=== PATIENT | female | born 1955 | race American Indian/Alaskan Native ===

== ENCOUNTER 2019-01-13 09:14 | Observation (INO) | payer MEDICAID, OTHER ==
[2018-12-22 10:06] LABS: Basophils % (Auto) 0.4 % (0.0-1.8); Eosinophils % (Auto) 0.4 % (0.0-4.3); Hematocrit 43.3 % (30.3-42.9); Hemoglobin 14.3 gm/dl (10.1-14.3); Lymphocytes # (Auto) 1.9 K/mm3 (1.2-5.4); Lymphocytes % (Auto) 20.7 % (13.4-35.0); Mean Corpuscular HGB Conc 33 % (30-34); Mean Corpuscular Volume 82 fl (79-97); Monocytes # (Auto) 0.8 K/mm3 (0.0-0.8); Monocytes % (Auto) 8.6 % (0.0-7.3); Platelet Count 178 K/mm3 (140-440); Red Blood Count 5.26 M/mm3 (3.65-5.03); Red Cell Distribution Width 15.7 % (13.2-15.2)
[2018-12-22 10:18] LABS: BUN/Creatinine Ratio 27; Blood Urea Nitrogen 30 mg/dL (7-17); Hemolysis Index 11
[~2019-01-13 09:14] MED LIST: ANCEF/STERILE WATER 2 GM/20 ML 2 GM/20 ML SYRINGE IV NR; ANCEF/STERILE WATER 2 GM/20 ML IV NR
[2019-01-13] MEDS ORDERED: SUBLIMAZE IV NR (09:38)
[2019-01-13] MEDS ORDERED: ZOFRAN IV PRN ×2 (09:38→19:37)
[2019-01-13] MEDS ORDERED: SUBLIMAZE IV PRN (09:38)
--- NOTE | 2019-01-13 09:38 | Anesthesia Day of Surgery ---
Anesthesia Day of Surgery - Day of Surgery Patient Examined: Yes Patient H&P Reviewed: Yes Patient is NPO: Yes Beta Blockers: Yes
[2019-01-13] MEDS ORDERED: TYLENOL PO NR (09:39)
--- NOTE | 2019-01-13 09:44 | Anesthesia Consultation ---
Anesthesia Consult and Med Hx Date of service: 01/13/19 - Airway Anesthetic Teeth Evaluation: Dentures, Edentulous ROM Head & Neck: Adequate Mental/Hyoid Distance: Adequate Mallampati Class: Class II Intubation Access Assessment: Good - Pre-Operative Health Status ASA Pre-Surgery Classification: ASA2 Proposed Anesthetic Plan: General Nerve Block: PEC - Cardiovascular System Hx Hypertension: Yes (x 20yrs. ETT 3 weeks ago ok per pt) - Central Nervous System Hx Psychiatric Problems: No - Other Systems Hx Cancer: Yes - Additional Comments Anesthesia Medical History Comments: +Med Clearance
[2019-01-13] MEDS ORDERED: VERSED IV NR (10:00)
[2019-01-13] MEDS ORDERED: NEURONTIN PO NR (10:00)
[2019-01-13] MEDS: LACTATED RINGERS 1,000 ML IV SCH (10:20)
[2019-01-13] MEDS ORDERED: XYLOCAINE 1% 20 mL ONE (10:42)
[2019-01-13] MEDS ORDERED: MARCAINE-EPI 0.5%-1:200,000 INFILTRATI ONE (10:42)
[2019-01-13] MEDS ORDERED: NACL P/F VIAL (10 ML) 20 ML ONE (10:47)
[2019-01-13] MEDS ORDERED: BACITRACIN ONE (10:48)
[2019-01-13] MEDS ORDERED: GENTAMICIN ONE (10:48)
[2019-01-13] MEDS ORDERED: ANCEF ONE ×2 (10:48→18:04)
[2019-01-13] MEDS ORDERED: XYLOCAINE 1%/ EPI 1:100,000 INFILTRATI ONE (10:49)
[2019-01-13] MEDS ORDERED: DIPRIVAN 10 MG/ML IV ONE (10:58)
[2019-01-13] MEDS ORDERED: ZEMURON IV ONE (11:00)
[2019-01-13] MEDS ORDERED: SUBLIMAZE ONE ×2 (11:00→15:43)
[2019-01-13] MEDS ORDERED: ZOFRAN ONE ×2 (11:04→21:48)
[2019-01-13] MEDS ORDERED: XYLOCAINE MPF 2% ONE (11:04)
[2019-01-13] MEDS ORDERED: DECADRON ONE (11:04)
[2019-01-13] MEDS ORDERED: NACL P/F VIAL (10 ML) 10 ML ONE (11:19)
[2019-01-13] MEDS ORDERED: METHYLENE BLUE ONE (11:19)
[2019-01-13] MEDS ORDERED: NACL 0.9% 1000 ML 1,000 ML ONE (14:44)
[2019-01-13] MEDS ORDERED: DILAUDID ONE ×2 (14:49→18:10)
[2019-01-13] MEDS ORDERED: METHYLENE BLUE IV ONE (15:12)
[2019-01-13] MEDS ORDERED: WATER FOR IRRIG STERILE IR ONE (15:12)
[2019-01-13] MEDS ORDERED: NACL 0.9% 1000 ML IR ONE (15:18)
[2019-01-13] MEDS ORDERED: LACTATED RINGERS 1,000 ML ONE ×2 (16:52→22:20)
[2019-01-13] MEDS ORDERED: BACITRACIN IR ONE (18:00)
[2019-01-13] MEDS ORDERED: ANCEF IR ONE (18:00)
[2019-01-13] MEDS ORDERED: GENTAMICIN IV ONE (18:00)
--- NOTE | 2019-01-13 19:34 | Operative Report ---
Operative Report Operative Report: Operative Report: Date of Service: January 13, 2019 Preoperative diagnosis: Multifocal right breast cancer of the upper outer quadrant and multifocal left breast cancer of the upper inner quadrant and overlapping areas Postoperative diagnosis: Same Procedure: Right total mastectomy with sentinel lymph node biopsy followed by ALND and left total mastectomy with SLNB Surgeon: Joanie Olivares M.D. Senior Power Scheduler: Dorinda Jimenez M.D. Anesthesia: Gen. Findings: Right breast clips present within right total mastectomy and left breast clips present within left total mastectomy. 3 right sentinel lymph nodes identified and one SLN positive for malignancy on frozen section of pathology and proceeded with left axillary lymph node dissection. 2 sentinel lymph nodes negative for malignancy on frozen section. Complications: None Drains: One 15 Turkmen SHERITA drains of the right axilla and additional drains placed by plastic surgery Estimated blood loss: 50 cc Disposition: Plastic Surgery proceeded with bilateral tissue expanders Indications for operative procedure: This is a 63-year-old lady with bilateral breast cancer, stage I right breast cancer of the upper outer quadrant ER/Her-2 positive and triple negative left breast cancer Stage II of the upper inner quadrant. Recommendations were to proceed with a bilateral mastectomy given multicentric left breast cancer and multifocal right breast cancer. She wished to proceed with a bilateral mastectomy with SLN staging and placement of bilateral tissue expanders in conjunction with plastic surgery. She wished to proceed with the above procedure. Procedure in detail: Anesthesia placed bilateral pectoral muscle blocks. The patient was taken to the operating room and was placed supine. Gen. anesthesia was administered. Bilateral nipples were injected with radioisotope and 1 cc of methylene blue. Bilateral chest and axillas were prepped and draped in the normal sterile operative fashion. Timeout was performed. Typical mastectomy incision markings were made that included the areas of known cancer. Attention was taken towards the right breast. A gamma probe was inserted into the axilla to identify the sentinel lymph node location with uptake noted. A skin incision was made with a 10 blade knife and dissection taken down to the subcutaneous tissues. First began raising of the superior flap to the level of the clavicle superiorly and posteriorly to the pectoralis muscle. Followed by raising of the medial flap to the level of the sternum and posteriorly to the pectoralis muscle. Followed by raising of the lateral flap to the level of the latissimus dorsi muscle and taken down posteriorly. The gamma probe was inserted into the axilla, the axillary fascia was opened and at least 3 sentinel lymph nodes were identified with the gamma probe. SLNs were dissected free and sent to pathology. All remaining counts were less than 10% of the highest SLN. Lymph node was sent to pathology with findings positive for malignancy noted on frozen section of at least one of three SLNS. Then proceeded with raising of the inferior flap to the level of the inframammary fold taken posterior to the pectoralis muscle. The mastectomy/breast was removed from the pectoralis muscle without incident. The specimen was appropriately marked and sent to radiology with findings of breast clips present of the area of known cancer; specimen was then sent to pathology. Attention was then taken towards the right axilla. First began opening of the axillary fascia further. The lattismus dorsi muscle was identified and followed superiorly. Then proceeded with identification of the axillary vein followed by identification of the thoracodorsal bundle and long thoracic nerve. Axillary lymph nodes were then removed from the above boundaries with the aid of the bovie cautery in a sweeping-like motion and then sent to pathology. Axillary lymph nodes from level I and II were removed. Both nerves were identified and unharmed. Hemostasis was noted. The chest wall was irrigated and suctioned. Hemostasis was obtained. Attention was then taken toward the left breast. First began raising of the superior flap to the level of the clavicle superiorly and posteriorly to the pectoralis muscle. Followed by raising of the medial flap to the level of the sternum and posteriorly to the pectoralis muscle. Followed by raising of the lateral flap to the level of the latissimus dorsi muscle and taken down posteriorly. The gamma probe was inserted into the axilla, the axillary fascia was opened and 2 sentinel lymph nodes were identified with the gamma probe. SLNs were dissected free and sent to pathology. All remaining counts were less than 10% of the highest SLN. Lymph node were sent to pathology with findings negative for malignancy noted on frozen section and one SLN with clip present from prior benign biopsy. Then proceed with raising of the inferior flap to the level of the inframammary fold taken posterior to the pectoralis muscle. The mastectomy/breast was removed from the pectoralis muscle without incident. The s pecimen was appropriately marked and sent to radiology with clips present and then sent to pathology. Hemostasis was obtained. Plastic surgery then proceeded with placement of bilateral tissue expanders. She tolerated surgery very well.
[2019-01-13] MEDS ORDERED: SODIUM CHLORIDE FLUSH SYRINGE 10 ML IV PRN (19:37)
[2019-01-13] MEDS ORDERED: TYLENOL PO PRN (19:37)
[2019-01-13] MEDS ORDERED: REGLAN PO PRN (19:37)
[2019-01-13] MEDS ORDERED: BENADRYL PO PRN (19:37)
--- NOTE | 2019-01-13 19:37 | Short Stay Summary ---
Short Stay Documentation Date of service: 01/13/19 - History H&P: obtained from office - Allergies and Medications Current Medications: Allergies lisinopril Adverse Reaction (Verified 01/13/19 10:44) Unknown PT STATES SHE HAS A COUGH Home Medications Medication Instructions Recorded Confirmed Last Taken Type RX: Chlorthalidone 50 mg PO DAILY 12/17/18 12/17/18 01/12/19 History amLODIPine [Norvasc] 10 mg PO DAILY 12/17/18 12/17/18 01/13/19 02:00 History AtorvaSTATin [Lipitor] 10 mg PO DAILY 12/22/18 12/22/18 01/12/19 History Metoprolol [Lopressor] 25 mg PO DAILY 12/22/18 12/22/18 01/13/19 02:00 History Active Medications Cefazolin Sodium (Ancef/Sterile Water 2 Gm/20 Ml) 2 gm IV PREOP NR Stop: 01/13/19 23:00 Fentanyl (Sublimaze) 50 mcg IV Q5MIN PRN PRN Reason: Pain , Severe (7-10) Stop: 01/13/19 20:00 Lactated Ringer's (Lactated Ringers) 1,000 mls @ 125 mls/hr IV DIRECT CELESTINO Last Admin: 01/13/19 10:20 Dose: 125 mls/hr Documented by: Midazolam HCl (Versed) 2 mg IV PREOP NR Stop: 01/13/19 23:59 Last Admin: 01/13/19 12:37 Dose: 2 mg Documented by: - Brief post op/procedure progress note Date of procedure: 01/13/19 Pre-op diagnosis: Bilateral breast cancer Post-op diagnosis: same Procedure: Right MRM and left total mastectomy Anesthesia: GETA Findings: Bilateral breast clips present within radiograph specimen; proceeded with an right ALND given positive SLNB Surgeon: ALVAREZ CUNINNGHAM Distance Education Faculty Liaison: ALDA MILIAN Estimated blood loss: 50-100ml Pathology: list (right MRM; left mastectomy with SLNB) Specimen disposition: to lab Condition: stable - Disposition Condition at discharge: Good Disposition: DC/TX-02 SHRT-TRM GEN HOSP IP Short Stay Discharge Plan Activity: other (no heavy lifting) Diet: regular Wound: keep clean and dry Follow up with: MICHEL PEÑA MD [Primary Care Provider] - 7 Days ALVAREZ CUNNINGHAM MD [Staff Physician] - 7 Days
[2019-01-13] MEDS ORDERED: LACTATED RINGERS 1,000 ML IV SCH (20:00)
[2019-01-13] MEDS ORDERED: NORMODYNE IV PRN (21:30)
[2019-01-13] MEDS ORDERED: CALAN ONE (21:57)
[2019-01-13] MEDS ORDERED: CALAN IV ONE (23:15)
[2019-01-14] MEDS: MORPHINE IV PRN ×2 (00:03→05:43)
[2019-01-14] MEDS: COLACE PO SCH ×2 (00:03→10:42)
[2019-01-14] MEDS: LACTATED RINGERS 1,000 ML IV SCH (00:27)
[2019-01-14] MEDS: PERCOCET 5/325 PO PRN ×2 (03:23→10:42)
[2019-01-14] MEDS ORDERED: ceFAZolin 2 GM in NACL 0.9% 100 ML IV ONE (07:43)
--- NOTE | 2019-01-14 07:47 | Progress Note ---
Assessment and Plan This is a 63 year old lady with Stage II bilateral breast cancer, POD#1 R MRM and left total mastectomy with SLNB. 1. No acute events overnight. 2. Pain in good control. 3. Bilateral chest incisions with no hematoma and bandages intact; SHERITA drains to bulb suction. 4. OOB to hallway. 5. D/C planning for today, SHERITA drain education. Subjective Date of service: 01/14/19 Principal diagnosis: Bilateral breast cancer Interval history: POD#1-R MRM and left total mastectomy with SLNB Objective - Constitutional Vitals: Vital Signs - 12hr 01/13/19 01/13/19 01/13/19 20:22 20:25 20:30 Temperature 96.9 F L Pulse Rate 81 83 84 Respiratory 16 10 L 10 L Rate Blood Pressure 171/80 171/80 175/84 O2 Sat by Pulse 100 100 100 Oximetry 01/13/19 01/13/19 01/13/19 20:35 20:40 20:45 Temperature Pulse Rate 86 91 H 78 Respiratory 10 L 10 L 12 Rate Blood Pressure 190/87 171/100 203/90 O2 Sat by Pulse 100 100 100 Oximetry 01/13/19 01/13/19 01/13/19 21:00 21:15 21:30 Temperature Pulse Rate 80 87 85 Respiratory 10 L 17 12 Rate Blood Pressure 157/64 186/87 201/78 O2 Sat by Pulse 100 98 98 Oximetry 01/13/19 01/13/19 01/14/19 21:45 22:23 00:03 Temperature Pulse Rate 72 68 Respiratory 18 18 Rate Blood Pressure 189/81 168/73 O2 Sat by Pulse 94 Oximetry 01/14/19 01/14/19 01/14/19 03:23 05:43 06:01 Temperature 98.0 F Pulse Rate 83 Respiratory 18 18 20 Rate Blood Pressure 137/60 O2 Sat by Pulse 92 Oximetry General appearance: Present: no acute distress - EENT Eyes: PERRL, EOM intact ENT: hearing intact, clear oral mucosa Ears: bilateral: normal - Neck Neck: supple, normal ROM - Respiratory Respiratory effort: normal Respiratory: negative: CTA - Breasts Breasts: other (bilateral chest incision bandages c/d/i; no hematoma; SHERITA drains to bulb suction) - Cardiovascular Rhythm: regular Extremities: no ischemia, pulses intact, pulses symmetrical, No edema, normal temperature, normal color, Full ROM - Gastrointestinal General gastrointestinal: Present: soft, non-tender, non-distended - Genitourinary Female genitourinary: deferred - Integumentary Integumentary: clear, warm, dry - Musculoskeletal Musculoskeletal: strength equal bilaterally - Neurologic Neurologic: CNII-XII intact, moves all extremities - Psychiatric Psychiatric: appropriate mood/affect, intact judgment & insight, memory intact, cooperative - Labs CBC & Chem 7: 12/22/18 09:00 12/22/18 09:00 Medications & Allergies - Medications Allergies/Adverse Reactions: Allergies lisinopril Adverse Reaction (Verified 01/13/19 10:44) Unknown PT STATES SHE HAS A COUGH Home Medications: Home Medications Medication Instructions Recorded Confirmed Last Taken Type Chlorthalidone 50 mg PO DAILY 12/17/18 12/17/18 01/12/19 History amLODIPine [Norvasc] 10 mg PO DAILY 12/17/18 12/17/18 01/13/19 02:00 History AtorvaSTATin [Lipitor] 10 mg PO DAILY 12/22/18 12/22/18 01/12/19 History Metoprolol [Lopressor] 25 mg PO DAILY 12/22/18 12/22/18 01/13/19 02:00 History Active Medications: Generic Name Dose Route Start Last Admin Trade Name Freq PRN Reason Stop Dose Admin Acetaminophen 650 mg 01/13/19 19:37 Tylenol PO Q6H PRN Pain MILD(1-3)/Fever >100.5/LEON Diphenhydramine HCl 25 mg 01/13/19 19:37 Benadryl PO Q8H PRN Itching Docusate Sodium 100 mg 01/13/19 22:00 01/14/19 00:03 Colace PO 100 mg BID CELESTINO Administration Lactated Ringer's 1,000 mls @ 125 mls/hr 01/13/19 10:00 01/14/19 00:27 Lactated Ringers IV 125 mls/hr DIRECT CELESTINO Administration Lactated Ringer's 1,000 mls @ 125 mls/hr 01/13/19 20:00 Lactated Ringers IV DIRECT CELESTINO Labetalol HCl 10 mg 01/13/19 21:30 01/13/19 20:45 Normodyne IV 10 mg Q10MIN PRN Administration sys. greater than 170 Metoclopramide HCl 10 mg 01/13/19 19:37 Reglan PO Q6H PRN Nausea And Vomiting Morphine Sulfate 2 mg 01/13/19 19:38 01/14/19 05:43 Morphine IV 2 mg Q4H PRN Administration Pain, Moderate (4-6) Ondansetron HCl 4 mg 01/13/19 19:37 Zofran IV Q8H PRN N/V unrelieved by Reglan Oxycodone/Acetaminophen 1 tab 01/13/19 19:37 01/14/19 03:23 Percocet 5/325 PO 1 tab Q6H PRN Administration Pain, Moderate (4-6) Sodium Chloride 10 ml 01/13/19 19:37 Sodium Chloride Flush Syringe 10 Ml IV PRN PRN LINE FLUSH
--- NOTE | 2019-01-14 08:12 | XRay Report ---
RIGHT BREAST SPECIMEN RADIOGRAPH X2 INDICATION: Rt Mastectomy...bilateral Breast cancer. COMPARISON: No relevant prior imaging study available. FINDINGS/IMPRESSION: An initial radiograph demonstrates only 3 biopsy clips within the specimen. A repeat radiograph demon strates 4 biopsy clips within the specimen. No other significant finding. For more detail please refe r to the operative report. Signer Name: Curtis Fernandez MD Signed: 01/14/2019 8:08 AM Workstation Name: [id number]
--- NOTE | 2019-01-14 09:06 | Post Anesthesia Evaluation ---
- Post Anesthesia Evaluation Patient Participated: Yes Airway Patent: Yes Stable Respiratory Function: Yes Nausea/Vomiting: No Temp > 96.8F: Yes Pain Manageable: Yes Adequeate Hydration: Yes Anesthesia Complications: No Block Receding Appropriately: No Patient on Ventilator: No
--- NOTE | 2019-01-14 13:17 | Operative Report ---
Operative Report Operative Report: Plastic Surgery Operative Note Preoperative Diagnosis: Acquired absence of the bilateral breasts; Malignant neoplasm of the bilateral breasts Postoperative Diagnosis: Same Procedure: Bilateral breast reconstruction with tissue senior manufacturing technician placement and FlexHD acellular dermal matrix. Surgeon: Shannan Painter MD Slurry Tank Operator: KAREL Nava Anesthesia: General EBL: 50cc Indications: This patient is a 63 year old AAF who is scheduled for a bilateral mastectomy due to her recent diagnosis of bilateral breast cancer. We discussed her options including autologous tissue transfer and she was interested in the least complex reconstructive route possible. After review of her options we determined that a tissue senior manufacturing technician placement with FlexHD dermal scaffold was her best option. The benefits as well as the risks of the procedure were discussed with the patient, including but not limited to infection, bleeding, hematoma, seroma, wound dehiscence, implant rupture, mastectomy flap necrosis, need for further surgery including planned stages and additional reconstruction. The patient understands and accepts these risks and desires to proceed with surgery. Procedure: After review of pertinent history and physical exam findings the patient was brought into the operating room and placed supine on the OR table. After induction of adequate general anesthesia the entire chest was prepped and draped in the usual sterile surgical fashion. To begin, Dr. Joanie Olivares performed the mastectomies with a right lymph node dissection, and this procedure is dictated under a separate operative note. When this was completed, the breast reconstruction was started on the left breast. Using electrocautery we dissected a submuscular pocket behind pectoralis muscle to accommodate the tissue senior manufacturing technician. The pocket was thoroughly irrigated with triple antibiotic solution and we began creating the inframammary border using Flex HD perforated contoured, a total size of [id number], SN [id number]. The inferior aspect of the Flex HD was secured to the chest fascia using 2-0 PDS suture. This was f ollowed by placement of the tissue senior manufacturing technician, [place] Siltex 750cc (SN [id number]), in the submuscular pocket. Following this inferior border of the pectoralis fascia was secured to the superior border of the FlexHD also using 2- 0 PDS suture. We then placed 300cc of methylene blue-dyed saline into the implant and closed over a 19 Fr Michael drain, which was secured using 2-0 Nylon sutures. The same exact procedure was repeated on the right side (FlexHD: [id number]; [place]: [id number]). A 15 Fr axillary drain was also placed on the right side after application of Smith hemostatic agent. We then began a 3- layered closure using 2-0 Monocry and 3-0 Monoderm Quill [id number] suture. This was followed by Dermabond and then Telfa with tegaderm followed by bra binder. Patient was then awakened from general anesthesia and transferred to the recovery room in stable condition. All sponge, needle and instrument counts were correct at the end of the case.
[2019-01-14 16:20] VITALS: BP 133/61
== END 2019-01-14 16:50 | disposition home or self-care (01) ==
LOC: OR 09:14 → OB 19:37
PROVIDERS: ADMIT Surgery; ATTEND Surgery
DX: C50.411 Malignant neoplasm of upper-outer quadrant of right female breast (principal); C50.212 Malignant neoplasm of upper-inner quadrant of left female breast
CPT/HCPCS: 19303; 36415; 38525; 38792; 64450; 76098; 78801; 80048; 85025; 88307; 88309; 88331; 88333; 88342; 96365; 96375; 96376; A9541; C1789; G0378; J0690; J1100; J1170; J1580; J2250; J2270; J2405; J2704; J3010; J7030; J7120; Q4128; Q9968

== ENCOUNTER 2019-02-23 05:46 | Day surgery (SDC) | payer MEDICAID ==
[2019-02-23] MEDS ORDERED: BACTERIOSTATIC SODIUM CHLORIDE 0.9% 30 ML VIAL INFILTRATI ONE (06:34)
[2019-02-23] MEDS ORDERED: SODIUM CHLORIDE 0.9% 100 ML ONE (06:40)
[2019-02-23] MEDS ORDERED: BUPIVACAINE/PF (0.25%) 2.5 MG/ML 30 ML VIAL INFILTRATI ONE ×3 (06:40→07:58)
[2019-02-23] MEDS ORDERED: LIDOCAINE (1%) 10 MG/1 ML VIAL 20 ML MDV ONE (06:40)
[2019-02-23] MEDS ORDERED: HEPARIN 10,000 UNITS/10 ML VIAL ONE (06:40)
[2019-02-23] MEDS ORDERED: ONDANSETRON 4 MG/2 ML INJ IV PRN (07:10)
[2019-02-23] MEDS ORDERED: fentaNYL 100 MCG/2 ML INJ IV PRN (07:10)
[2019-02-23] MEDS ORDERED: ceFAZolin/STERILE WATER 2 GM/20 ML SYRINGE IV NR (07:15)
--- NOTE | 2019-02-23 07:15 | Anesthesia Day of Surgery ---
Anesthesia Day of Surgery - Day of Surgery Patient Examined: Yes Patient H&P Reviewed: Yes Patient is NPO: Yes Beta Blockers: Yes
--- NOTE | 2019-02-23 07:16 | Anesthesia Consultation ---
Anesthesia Consult and Med Hx Date of service: 02/23/19 - Airway Anesthetic Teeth Evaluation: Edentulous ROM Head & Neck: Adequate Mental/Hyoid Distance: Adequate Mallampati Class: Class II Intubation Access Assessment: Good - Pre-Operative Health Status ASA Pre-Surgery Classification: ASA2 Proposed Anesthetic Plan: General - Pulmonary Hx Sleep Apnea: (HIGH NAHEED RISK) - Cardiovascular System Hx Hypertension: Yes (x 20yrs. States can climb two flights of stairs) - Central Nervous System Hx Psychiatric Problems: No - Other Systems Hx Alcohol Use: No Hx Substance Use: No Hx Cancer: Yes Hx Obesity: Yes
[2019-02-23] MEDS ORDERED: LIDOCAINE MPF (2%) 20 MG/1 ML VIAL 5 ML ONE (07:23)
[2019-02-23] MEDS ORDERED: PROPOFOL 200 MG/20 ML VIAL IV ONE (07:24)
[2019-02-23] MEDS ORDERED: LIDOCAINE (1%) 10 MG/1 ML VIAL 20 ML MDV INFILTRATI ONE ×2 (07:58)
[2019-02-23] MEDS ORDERED: LACTATED RINGERS 1,000 ML IV SCH (08:00)
[2019-02-23] MEDS ORDERED: PHENYLEPHRINE/NS 1,000 MCG/10 ML SYRINGE (OR USE) IV ONE (08:00)
[2019-02-23] MEDS ORDERED: SODIUM CHLORIDE P/F VIAL 10 ML 10 ML ONE (08:01)
[2019-02-23] MEDS ORDERED: SODIUM CHLORIDE 0.9% 100 ML IVPB IV ONE (08:05)
[2019-02-23] MEDS ORDERED: HEPARIN 10,000 UNITS/10 ML VIAL IV ONE ×2 (08:05→08:14)
--- NOTE | 2019-02-23 08:44 | Short Stay Summary ---
Short Stay Documentation Date of service: 02/23/19 - History Principal diagnosis: breast cancer H&P: obtained from office - Allergies and Medications Current Medications: Allergies lisinopril Adverse Reaction (Verified 02/19/19 12:24) Cough Home Medications Medication Instructions Recorded Confirmed Last Taken Type Chlorthalidone 100 mg PO DAILY 12/17/18 02/23/19 02/22/19 18:00 History Metoprolol [Lopressor] 25 mg PO BID 12/22/18 02/23/19 02/22/19 18:00 History Ibuprofen [Motrin] 800 mg PO Q8HR PRN 02/19/19 02/23/19 02/16/19 09:00 History Losartan [Cozaar] 100 mg PO QDAY 02/19/19 02/23/19 02/22/19 18:00 History Potassium Chloride [Klor-Con] 20 meq PO QDAY 02/19/19 02/23/19 02/22/19 22:30 History methOCARBAMOL [Robaxin TAB] 750 mg PO Q8H PRN 02/19/19 02/23/19 02/22/19 18:00 History Active Medications Cefazolin Sodium (Ancef/Sterile Water 2 Gm/20 Ml) 2 gm IV PREOP NR Stop: 02/23/19 14:00 Fentanyl (Sublimaze) 50 mcg IV Q5MIN PRN PRN Reason: Pain , Severe (7-10) Stop: 02/23/19 23:00 Lactated Ringer's (Lactated Ringers) 1,000 mls @ 125 mls/hr IV DIRECT CELESTINO Last Admin: 02/23/19 07:25 Dose: 125 mls/hr Documented by: Ondansetron HCl (Zofran) 4 mg IV ONCE PRN PRN Reason: Nausea And Vomiting - Brief post op/procedure progress note Date of procedure: 02/23/19 Pre-op diagnosis: breast cancer Post-op diagnosis: same Procedure: left internal jugular port a cath with mindray ultrasound guidance Anesthesia: GETA, local Findings: good placement of port without PTX Surgeon: BEVERLY ROSE Estimated blood loss: minimal Pathology: none Condition: stable - Hospital course Hospital course: Pt observed in PACU and discharged to home in stable condition when criteria met - Disposition Condition at discharge: Good Disposition: DC-01 TO HOME OR SELFCARE Short Stay Discharge Plan Activity: no restrictions Diet: regular Wound: open to air Additional Instructions: SEE PRINTED DISCHARGE INSTRUCTIONS Follow up with: MICHEL PEÑA MD [Primary Care Provider] - 7 Days BEVERLY ROSE DO [Staff Physician] - 10 Days
--- NOTE | 2019-02-23 08:57 | Fluoroscopy Report ---
FLUOROSCOPY CENTRAL VENOUS DEVICE PLACEMENT HISTORY: Breast cancer, [id number] insertion FINDINGS: 46 seconds of fluoroscopy time was provided by radiology during placement of a left IJ Infu se-a-Port. 2 AP views of the chest are presented demonstrating the distal tip of the Clqliu-r-Zgai te rminating in the superior right atrium. The lungs are clear. No evidence for pneumothorax. Heart size is at the upper limits of normal. Bilateral breast tissue expanders are noted. IMPRESSION: [id number] as described. No pneumothorax. Signer Name: Victor Manuel Valle Jr, MD Signed: 02/23/2019 8:53 AM Workstation Name: [id number]
--- NOTE | 2019-02-23 09:23 | Operative Report ---
Operative Report Operative Report: Date of operation: 02/23/19 Preoperative diagnosis: Bilateral breast cancer Postoperative diagnosis: Same as above Procedure performed: Placement of left internal jugular vein Port-A-Cath with mindray ultrasound guidance Surgeon: Aleida Flor DO Anesthesia: LMA, local Findings: On intraoperative CXR - good placement of port and no PTX EBL: <10cc Complications: none Disposition: stable to PACU HPI and indication: Patient is a 63-year-old female who has been diagnosed with bilateral breast cancer and has undergone bilateral mastectomy with reconstruction. The patient is seen by Dr. Hartman and deemed a candidate for chemotherapy. All of the risks, and benefits, alternatives associated with the procedure were discussed with the patient including but not limited to pneumothorax, infection, bleeding, malpositioned port, injury to other structures. The patient understands and all questions were answered. Consent was signed and placed on chart. Procedure in detail: The patient was identified in the preoperative area, taken back to operating room, placed on operating table in supine position. After a nesthesia was induced both arms were tucked and upper chest and neck were prepped and draped in usual sterile fashion. A timeout was performed. The was placed in Trendelenburg position. Local anesthetic was infiltrated into the skin at the intended puncture site. The left subclavian vein was visualized on ultrasound and despite 2 attempts could not be accessed safely and therefore the left internal jugular vein was identified using the ultrasound and was accessed on the first stick. There was return of dark red, nonpulsatile blood. The wire was threaded under fluoroscopy without resistance and positioning confirmed. The needle was then removed. Using a 15 blade, an incision was made in the LEFT upper chest and dissection carried down through the skin and subcutaneous tissue using Bovie electrocautery. Hemostasis was achieved along the way. A pocket for the port was then created bluntly and with electrocautery. The catheter was flushed and tunneled from the pocket to the wire. A breakaway catheter/dilator sheath then inserted over the wire under fluoroscopy, and the wire and dilator removed. The catheter was then inserted through the breakaway catheter which was then rem archie. The catheter sat flush under the skin. Using continuous fluoroscopy, the catheter was pulled back until the tip was visualized in the right atrium. The catheter was then cut to size and the port attached in the usual fashion. The port was then sutured into place to the pre-pectoral fascia using 2-0 Vicryl interrupted sutures. The wound was irrigated and hemostasis ensured. The port was tested with heparinized saline and there was return of blood and it flushed easily. The port was then instilled with 3000 units of heparin. The deep dermal layer was then closed with interrupted 3-0 Vicryl stitches. The skin incisions were closed with 4-0 Monocryl subcuticular stitches and skin glue. Intraoperative chest x-ray did show good positioning of the port, without evidence of pneumothorax. Was no ectopy seen on the monitor. At the end of the case, all sponge, instrument, sharp counts were correct 2. The patient was awoken from anesthesia and taken to PACU in stable condition.
--- NOTE | 2019-02-23 09:41 | Post Anesthesia Evaluation ---
- Post Anesthesia Evaluation Patient Participated: Yes Airway Patent: Yes Stable Respiratory Function: Yes Nausea/Vomiting: No Temp > 96.8F: Yes Pain Manageable: Yes Adequeate Hydration: Yes Anesthesia Complications: No Block Receding Appropriately: Not Applicable Patient on Ventilator: No
[2019-02-23 10:50] VITALS: BP 157/71
== END 2019-02-23 05:47 | disposition home or self-care (01) ==
LOC: OR 05:46
PROVIDERS: ATTEND Surgery
DX: C50.212 Malignant neoplasm of upper-inner quadrant of left female breast (principal); C50.812 Malignant neoplasm of overlapping sites of left female breast; C50.411 Malignant neoplasm of upper-outer quadrant of right female breast; C50.811 Malignant neoplasm of overlapping sites of right female breast; I10 Essential (primary) hypertension; G47.30 Sleep apnea, unspecified; M19.90 Unspecified osteoarthritis, unspecified site; Z88.8 Allergy status to other drugs, medicaments and biological substances; Z79.899 Other long term (current) drug therapy; Z90.13 Acquired absence of bilateral breasts and nipples; Z98.890 Other specified postprocedural states; Z80.42 Family history of malignant neoplasm of prostate
CPT/HCPCS: 36561; 77001; C1788; J0690; J1644; J2370; J2704; J3010; J7120

== ENCOUNTER 2019-02-25 12:44 | Outpatient (CLI) | payer MEDICAID ==
--- NOTE | 2019-02-25 16:19 | PET Report ---
PET/CT HISTORY: C50.112. Restaging of left breast cancer. TECHNIQUE: The patient's fasting blood glucose was 88. The patient weighed 240 lbs. The patient wa s injected with 18.6 mCi of FDG in the right antecubital fossa at 1339 hours and imaging was started at 1324 hours. The patient was imaged from the skull base to the thighs. [facility] are performed using CT dose reduction for ALARA by means of automated exposure control. Images wer e reviewed on a workstation. COMPARISON: No relevant comparison at this facility. FINDINGS: IMAGED BRAIN: [Physiologic FDG uptake] NECK: [Physiologic FDG uptake] CHEST WALL: [Physiologic FDG uptake]. Bilateral breast tissue expanders are in place. No recurrent c hest wall mass. MEDIASTINUM: [Physiologic FDG uptake] LUNGS: [Physiologic FDG uptake]. No pulmonary nodule or mass is identified. HEPATOBILIARY: [Physiologic FDG uptake]. Liver SUV measures 4.4. Cholelithiasis is noted. PANCREAS: [Physiologic FDG uptake SPLEEN: [Physiologic FDG uptake] KIDNEYS/BLADDER: [Physiologic FDG uptake] ADRENAL GLANDS: [Physiologic FDG uptake] GI/MESENTERY: [Physiologic FDG uptake] PELVIC VISCERA: [Physiologic FDG uptake] LYMPH NODES: [Physiologic FDG uptake]. No lymphadenopathy is detected. OSSEOUS STRUCTURES: [Physiologic FDG uptake]. No suspicious bony lesions are detected. Moderate thor acolumbar spondylosis. ADDITIONAL FINDINGS: [Moderate sized umbilical hernia containing fat.] IMPRESSION: Negative PET CT. No evidence for recurrent or metastatic disease. Signer Name: Victor Manuel Valle Jr, MD Signed: 02/25/2019 4:15 PM Workstation Name: [id number]
== END 2019-02-25 12:45 | disposition home or self-care (01) ==
LOC: PET 12:44
PROVIDERS: ATTEND Internal Medicine Hematology & Oncology
DX: C50.112 Malignant neoplasm of central portion of left female breast (principal); K42.9 Umbilical hernia without obstruction or gangrene; I10 Essential (primary) hypertension; E66.9 Obesity, unspecified
CPT/HCPCS: 78815; 82962; A9552

== ENCOUNTER 2019-04-07 09:54 | Inpatient (IN) | payer MEDICAID ==
[2019-04-07] MEDS ORDERED: SODIUM CHLORIDE 0.9% 1000 ML IV SOLN IV ONE (11:16)
[2019-04-07] MEDS ORDERED: VANCOMYCIN/NS 1 GM/250 ML 1 GM/250 ML BAG IV ONE (11:21)
[2019-04-07] MEDS ORDERED: PIPERACIL/TAZOBACTA 4.5/NS 100 4.5 GM/100 ML VIAL IV ONE (11:24)
[2019-04-07] MEDS ORDERED: VANCOMYCIN 2,000 MG in SODIUM CHLORIDE 0.9% 500 ML 500 ML IV ONE ×2 (12:00→19:00)
[2019-04-07 12:24] LABS: Hematocrit 31.4 % (30.3-42.9); Hemoglobin 10.3 gm/dl (10.1-14.3); Mean Corpuscular HGB Conc 33 % (30-34); Mean Corpuscular Volume 81 fl (79-97); Platelet Count 272 K/mm3 (140-440)
[2019-04-07 12:45] LABS: Alanine Aminotransferase 14 units/L (7-56); Albumin 3.4 g/dL (3.9-5); BUN/Creatinine Ratio 8; Blood Urea Nitrogen 6 mg/dL (7-17); Calcium 8.4 mg/dL (8.4-10.2); Hemolysis Index 20
--- NOTE | 2019-04-07 12:52 | Emergency Department Report ---
- General Chief complaint: Skin/Abscess/Foreign Body Stated complaint: RT BREAST LEAKING Time Seen by Provider: 04/07/19 10:52 Source: patient Mode of arrival: Ambulatory Limitations: No Limitations - History of Present Illness Initial comments: 63 year old female breast CA patient, s/p bilateral masectomy January 13 2019 and currently on chemotherapy infusions every 2 weeks into the ER today complaining of drainage from post masectomy site in the right breast area. She states she noticed it this morning. She describes a clear yellow drainage. She also reports associated erythema and increasing swelling to the area. She states she has been getting a special "injection" in the site to prepare for breast implant. Her last injection was about 3 weeks ago. She states that the area is nontender. She denies any fever or chills. Denies any recent antibiotic use. Denies hx of MRSA. She reports no other symptoms at this time. Her Oncologist is Dr Olivares, and her Surgeon is Dr Garcia. complaint: abscess/boil, other (wound drainage) -: Sudden (patient states that she noticed symptoms this morning) Location: chest (right breast area s/p masectomy) Severity scale (0 -10): 0 Improves with: none Worsens with: none Context: other (Breast CA pt currently in Chemo q 2 weeks) Associated symptoms: denies other symptoms Treatments Prior to Arrival: none - Related Data Home Medications Medication Instructions Recorded Confirmed Last Taken Chlorthalidone 100 mg PO DAILY 12/17/18 04/07/19 02/22/19 18:00 Metoprolol [Lopressor] 25 mg PO BID 12/22/18 04/07/19 02/22/19 18:00 Ibuprofen [Motrin] 800 mg PO Q8HR PRN 02/19/19 04/07/19 02/16/19 09:00 Losartan [Cozaar] 100 mg PO QDAY 02/19/19 04/07/19 02/22/19 18:00 methOCARBAMOL [Robaxin TAB] 750 mg PO Q8H PRN 02/19/19 04/07/19 02/22/19 18:00 Allergies Allergy/AdvReac Type Severity Reaction Status Date / Time lisinopril AdvReac Cough Verified 02/19/19 12:24 Abscess Boil HPI - HPI Chief Complaint: Skin/Abscess/Foreign Body Stated Complaint: RT BREAST LEAKING Time Seen by Provider: 04/07/19 10:52 Home Medications: Home Medications Medication Instructions Recorded Confirmed Last Taken Chlorthalidone 100 mg PO DAILY 12/17/18 04/07/19 02/22/19 18:00 Metoprolol [Lopressor] 25 mg PO BID 12/22/18 04/07/19 02/22/19 18:00 Ibuprofen [Motrin] 800 mg PO Q8HR PRN 02/19/19 04/07/19 02/16/19 09:00 Losartan [Cozaar] 100 mg PO QDAY 02/19/19 04/07/19 02/22/19 18:00 methOCARBAMOL [Robaxin TAB] 750 mg PO Q8H PRN 02/19/19 04/07/19 02/22/19 18:00 Allergies/Adverse Reactions: Allergies Allergy/AdvReac Type Severity Reaction Status Date / Time lisinopril AdvReac Cough Verified 02/19/19 12:24 ED Review of Systems ROS: Stated complaint: RT BREAST LEAKING Other details as noted in HPI Comment: All other systems reviewed and negative Constitutional: denies: chills, fever Respiratory: no symptoms reported Cardiovascular: denies: chest pain, palpitations Gastrointestinal: denies: abdominal pain, nausea, diarrhea Skin: change in color, other (wound drainage, redness and swelling) Neurological: denies: headache, weakness, paresthesias ED Past Medical Hx - Past Medical History Previous Medical History?: Yes Hx Hypertension: Yes Hx Arthritis: Yes (Legs) Hx HIV: (NEVER TESTED) Additional medical history: Breast CA - Surgical History Past Surgical History?: Yes Additional Surgical History: Mastectomy - Social History Smoking Status: Never Smoker Substance Use Type: None - Medications Home Medications: Home Medications Medication Instructions Recorded Confirmed Last Taken Type Chlorthalidone 100 mg PO DAILY 12/17/18 04/07/19 02/22/19 18:00 History Metoprolol [Lopressor] 25 mg PO BID 12/22/18 04/07/19 02/22/19 18:00 History Ibuprofen [Motrin] 800 mg PO Q8HR PRN 02/19/19 04/07/19 02/16/19 09:00 History Losartan [Cozaar] 100 mg PO QDAY 02/19/19 04/07/19 02/22/19 18:00 History methOCARBAMOL [Robaxin TAB] 750 mg PO Q8H PRN 02/19/19 04/07/19 02/22/19 18:00 History ED Physical Exam - General Limitations: No Limitations General appearance: alert, in no apparent distress - Head Head exam: Present: atraumatic, normocephalic - Eye Eye exam: Present: normal appearance, PERRL Pupils: Present: normal accommodation - Respiratory Respiratory exam: Present: respiratory distress - Cardiovascular Cardiovascular Exam: Present: regular rate - GI/Abdominal GI/Abdominal exam: Present: soft, distended - Skin Skin exam: Present: other (post surgical wound/scaring noted to right breast area but there is large area of cellulitis to it but no streaking, +warmth, and when compared to left post surgical site there is increased swelling and induration; There is mild clear drainage from a very small opening in the area of incision, no apparent pus or fluctuance. 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 1647 -- Discussed case with Dr Painter, she agrees pt with plan to admit patient for continued IV antibiotic and she will consult. Pt to be admitted to Hospitalist service. Labs, and plan for admission discussed with patient. She agrees with plan. Critical care attestation.: If time is entered above; I have spent that time in minutes in the direct care of this critically ill patient, excluding procedure time. ED Disposition Clinical Impression: Cellulitis, Status post mastectomy, Breast cancer Disposition: OP ADMIT IP TO THIS HOSP Is pt being admited?: Yes Condition: Stable Forms: Accompanied Note Time of Disposition: 16:49
[2019-04-07 13:06] LABS: Band Neutrophils # (Manual) 0.2 K/mm3; Basophils % (Manual) 0 % (0.0-1.8); Eosinophils % (Manual) 0 % (0.0-4.3); Total Cells Counted 100
[2019-04-07 13:07] LABS: Anisocytosis 1+; Platelet Estimate Consistent w Auto
--- NOTE | 2019-04-07 14:57 | Cat Scan Report ---
CT CHEST WITH CONTRAST INDICATION: Status post right mastectomy with cellulitis/abscess at site of surgery. TECHNIQUE: Axial CT images were obtained through the chest after 100 mL Omnipaque 300 IV contrast. Coronal and s agittal reformats were produced. All CT scans at this location are performed using CT dose reduction for ALARA by means of automated exposure control. COMPARISON: PET/CT from 02/25/2019. FINDINGS: MEDIASTINUM: The previously seen left thyroid nodule/nodules are stable. Shotty mediastinal nodes may be reactive. No additional significant abnormality is seen. HEART: No significant abnormality. THORACIC AORTA AND ARTERIES: The aorta is normal in caliber and mildly calcified. Generalized coronar y atherosclerosis is stable. LUNGS: Mild dependent atelectasis is seen bilaterally without an additional significant abnormality o f the lungs. No pneumothorax or pleural effusion is seen. ADDITIONAL FINDINGS: Bilateral breast tissue expanders are again seen with generalized edema througho ut the chest wall and stable skin thickening, right greater than left. No organized fluid collection or other new acute abnormality is seen. UPPER ABDOMEN: No acute abnormality is seen. There is cholelithiasis without evidence of acute cholec ystitis. Mild generalized atherosclerosis is unchanged. SKELETAL SYSTEM: No acute abnormality or aggressive appearing osseous lesion is seen. There are degen erative changes throughout the spine and along the shoulders. IMPRESSION: 1. Stable chest wall edema and skin thickening without visualization of a fluid collection/abscess. 2. No other acute abnormality of the chest. 3. Additional findings as above. Signer Name: Marcos Arciniega MD Signed: 04/07/2019 2:52 PM Workstation Name: [id number]
[2019-04-07] MEDS ORDERED: IBUPROFEN 800 MG TAB PO PRN (17:35)
[2019-04-07] MEDS ORDERED: oxyCODONE /ACETAMINOPHEN 5-325MG TAB PO PRN (17:38)
[2019-04-07] MEDS ORDERED: ACETAMINOPHEN 325 MG TAB PO PRN (17:38)
[2019-04-07] MEDS ORDERED: ONDANSETRON 4 MG/2 ML INJ IV PRN (17:38)
--- NOTE | 2019-04-07 17:44 | History and Physical Report ---
History of Present Illness Date of examination: 04/07/19 Date of admission: 04/07/19 16:21 Chief complaint: Drainage from the right breast History of present illness: 63 year old female breast CA patient, s/p bilateral masectomy January 13 2019 and currently on chemotherapy infusions every 2 weeks presented to the ER today complaining of clear yellow drainage from post masectomy site in the right breast area for one day. She also reports associated erythema and increasing swelling to the area. She states she has been getting a special "injection" in the site to prepare for breast implant. Her last injection was about 3 weeks ago. She states that the area is nontender. She denies any fever or chills. Denies any recent antibiotic use. Denies hx of MRSA. She reports no other symptoms at this time. Her Oncologist is Dr Olivares, and her Surgeon is Dr Garcia. In the ER her white count was elevated, CT chest showed no fluid collection. She was placed on iv abx, obtained cx and called for admission for further Mx. Review of System: Constitutional: no fever, no chills, no weight loss Ears, eyes, nose, mouth and throat: no nasal congestion, no nasal discharge, no sinus pressure, no vision change, no red eye. Neck: No neck pain or rigidity. Cardiovascular: No chest pain, no orthopnea, no palpitations, no leg swelling Respiratory: No shortness of breath, no cough, no congestion, no wheezing Gastrointestinal: no abdominal pain, no nausea, no vomiting Genitourinary : no dysuria, no hematuria Musculoskeletal: no joint swelling or muscle ache Integumentary: no rash, no pruritis Neurological: no parathesias, no numbness, no tingling Endocrine: no cold or heat intolerance, no polyuria or polydipsia Hematologic/Lymphatic: no easy bruising, no easy bleeding, no gland swelling Allergic/Immunologic: no urticaria, no angioedema. Past History Past Medical History: hypertension, other (stage 2 breast cancer) Past Surgical History: mastectomy (b/l) Social history: lives with family. denies: smoking, alcohol abuse Family history: no significant family history Medications and Allergies Allergies Allergy/AdvReac Type Severity Reaction Status Date / Time lisinopril AdvReac Cough Verified 02/19/19 12:24 Home Medications Medication Instructions Recorded Confirmed Last Taken Type Chlorthalidone 100 mg PO DAILY 12/17/18 04/07/19 02/22/19 18:00 History Metoprolol [Lopressor] 25 mg PO BID 12/22/18 04/07/19 02/22/19 18:00 History Ibuprofen [Motrin] 800 mg PO Q8HR PRN 02/19/19 04/07/19 02/16/19 09:00 History Losartan [Cozaar] 100 mg PO QDAY 02/19/19 04/07/19 02/22/19 18:00 History methOCARBAMOL [Robaxin TAB] 750 mg PO Q8H PRN 02/19/19 04/07/19 02/22/19 18:00 History Active Meds: Active Medications Acetaminophen (Tylenol) 650 mg PO Q4H PRN PRN Reason: Pain MILD(1-3)/Fever >100.5/LEON Docusate Sodium (Colace) 100 mg PO BID [facility] Enoxaparin Sodium (Enoxaparin) 40 mg SUB-Q QDAY@2200 [facility] Famotidine (Pepcid) 10 mg PO BID [facility] Piperacillin Sod/Tazobactam Sod (Zosyn/Ns 3.375gm/50ml) 3.375 gm in 50 mls @ 100 mls/hr IV Q8HR [facility]; Protocol Vancomycin HCl (Vancomycin/Ns 1 Gm/250 Ml) 1 gm in 250 mls @ 166.667 mls/hr IV Q12H [facility]; Protocol Ibuprofen (Ibuprofen) 800 mg PO Q8HR PRN PRN Reason: Inflammation Methocarbamol (Robaxin) 750 mg PO Q8H PRN PRN Reason: Pain Metoprolol Tartrate (Metoprolol) 25 mg PO BID [facility] Miscellaneous Medication (Chlorthalidone [Chlorthalidone]) 100 mg PO DAILY [facility] Miscellaneous Medication (Losartan [Cozaar]) 100 mg PO QDAY [facility] Ondansetron HCl (Zofran) 4 mg IV Q8H PRN PRN Reason: N/V unrelieved by Reglan Oxycodone/Acetaminophen (Percocet 5/325) 1 tab PO Q6H PRN PRN Reason: Pain, Moderate (4-6) Exam - Physical Exam Narrative exam: GENERAL: well-developed obese AAF lying on bed appeared to be in no discomfort. HEENT: Normocephalic. Atraumatic. No conjunctival congestion or icterus. Patient has moist mucous membranes. NECK: Supple. Trachea midline. CHEST/LUNGS: Clear to auscultated bilaterally, breathing nonlabored. No wheezes crackles or rhonchi. HEART/CARDIOVASCULAR: Regular in rate and rhythm. S1 and S2 positive. ABDOMEN: Abdomen is soft, nontender. Patient has normal bowel sounds. SKIN: There is no rash. Warm and dry. Right breast: change in color, other (wound drainage, redness and swelling) NEURO: No focal motor deficit. Follows command. MUSCULOSKELETAL: No joint effusion or tenderness. EXTRIMITY: No edema, no cyanosis or clubbing. PSYCH: Cooperative. - Constitutional Vitals: Temp Pulse Resp BP Pulse Ox 99.6 F 88 18 132/58 99 04/07/19 16:05 04/07/19 16:05 04/07/19 16:52 04/07/19 16:05 04/07/19 16:52 Results - Labs CBC & Chem 7: 04/07/19 11:47 04/07/19 11:47 Labs: Abnormal lab results 04/07/19 04/07/19 Range/Units 11:47 11:47 WBC 16.0 H (4.5-11.0) K/mm3 MCH 27 L (28-32) pg RDW 16.0 H (13.2-15.2) % Seg Neuts % (Manual) 94.0 H (40.0-70.0) % Lymphocytes % (Manual) 3.0 L (13.4-35.0) % Seg Neutrophils # Man 15.0 H (1.8-7.7) K/mm3 Lymphocytes # (Manual) 0.5 L (1.2-5.4) K/mm3 Carbon Dioxide 21 L (22-30) mmol/L BUN 6 L (7-17) mg/dL Albumin 3.4 L (3.9-5) g/dL Assessment and Plan Right breast cellulitis Leukocytosis likely due to sepsis History of breast cancer status post bilateral mastectomy HTN - continue metoprolol and losartan - - We will admit the patient to medsurge bed - We will obtain blood culture, wound culture - Place on empiric antibiotics for now - Continue IV fluid hydration and monitor BP - We'll resume home meds - Provide GI and DVT prophylaxis Radiological data: CTA chest 1. Stable chest wall edema and skin thickening without visualization of a fluid collection/abscess. 2. No other acute abnormality of the chest. 3. Additional findings as above.
[2019-04-07] MEDS ORDERED: VANCOMYCIN/NS 1 GM/250 ML 1 GM/250 ML BAG IV SCH (18:00)
[2019-04-07] MEDS: PIPERACILLIN/TAZOBACTAM 3.375 3.375 GM/50 ML BAG IV SCH (22:26)
[2019-04-07] MEDS: FAMOTIDINE 10 MG TAB PO SCH (22:32)
[2019-04-07] MEDS: ENOXAPARIN 40 MG/0.4 ML INJ SUB-Q SCH (22:32)
[2019-04-07] MEDS: METOPROLOL TARTRATE 25 MG TAB PO SCH (22:32)
[2019-04-07] MEDS: DOCUSATE SODIUM 100 MG CAP PO SCH (22:33)
[2019-04-08] MEDS: VANCOMYCIN 1,500 MG in SODIUM CHLORIDE 0.9% 500 ML 500 ML IV SCH ×2 (02:39→16:30)
[2019-04-08] MEDS: PIPERACILLIN/TAZOBACTAM 3.375 3.375 GM/50 ML BAG IV SCH (05:07)
[2019-04-08] MEDS ORDERED: CHLORTHALIDONE 100 MG PO SCH (10:00)
[2019-04-08] MEDS ORDERED: NON-FORMULARY EACH (Losartan [Cozaar] 100 MG) PO SCH (10:00)
[2019-04-08 10:06] LABS: Hematocrit 31.2 % (30.3-42.9); Hemoglobin 10.2 gm/dl (10.1-14.3); Mean Corpuscular HGB Conc 33 % (30-34); Mean Corpuscular Volume 81 fl (79-97); Platelet Count 316 K/mm3 (140-440); Red Blood Count 3.85 M/mm3 (3.65-5.03); Red Cell Distribution Width 15.9 % (13.2-15.2)
[2019-04-08] MEDS: METOPROLOL TARTRATE 25 MG TAB PO SCH ×2 (11:25→22:27)
[2019-04-08] MEDS: FAMOTIDINE 10 MG TAB PO SCH ×2 (11:25→22:27)
[2019-04-08] MEDS: CHLORTHALIDONE 25 MG TAB PO SCH (11:25)
[2019-04-08] MEDS: LOSARTAN 50 MG TAB PO SCH (11:25)
[2019-04-08] MEDS: DOCUSATE SODIUM 100 MG CAP PO SCH ×2 (11:26→22:18)
--- NOTE | 2019-04-08 13:15 | Consultation ---
History of Present Illness - Reason for Consult Consult date: 04/08/19 Right breast cellulitis, s/p reconstruction with tissue dispensing lead. - History of Present Illness 63 year old patient who has a recent history of bilateral mastectomies with immediate reconstruction admitted last night for IV antibiotics with complaint of right breast pain that started yesterday morning and drainage. She had an uncomplicated post operative course during which she underwent successful expansion to her desired volume. She was slated to undergo a planned second stage of reconstruction as she had completed tissue expansion about 2 weeks ago. In the ER pt had a CT scan which showed no fluid collection. Today she says that although she is feeling a lot better, her right breast started draining about an hour ago. She denies fever, chills, sob or cp. Past History Past Medical History: hypertension, other (stage 2 breast cancer) Past Surgical History: mastectomy (b/l) Social history: lives with family. denies: smoking, alcohol abuse Family history: no significant family history Medications and Allergies Allergies Allergy/AdvReac Type Severity Reaction Status Date / Time lisinopril AdvReac Cough Verified 02/19/19 12:24 Home Medications Medication Instructions Recorded Confirmed Last Taken Type Chlorthalidone 100 mg PO DAILY 12/17/18 04/07/19 02/22/19 18:00 History Metoprolol [Lopressor] 25 mg PO BID 12/22/18 04/07/19 02/22/19 18:00 History Ibuprofen [Motrin] 800 mg PO Q8HR PRN 02/19/19 04/07/19 02/16/19 09:00 History Losartan [Cozaar] 100 mg PO QDAY 02/19/19 04/07/19 02/22/19 18:00 History methOCARBAMOL [Robaxin TAB] 750 mg PO Q8H PRN 02/19/19 04/07/19 02/22/19 18:00 History Active Meds: Active Medications Acetaminophen (Tylenol) 650 mg PO Q4H PRN PRN Reason: Pain MILD(1-3)/Fever >100.5/LEON Chlorthalidone (Thalitone) 100 mg PO QDAY [facility] Last Admin: 04/08/19 11:25 Dose: 100 mg Documented by: Docusate Sodium (Colace) 100 mg PO BID [facility] Last Admin: 04/08/19 11:26 Dose: Not Given Documented by: Enoxaparin Sodium (Enoxaparin) 40 mg SUB-Q QDAY@2200 [facility] Last Admin: 04/07/19 22:32 Dose: 40 mg Documented by: Famotidine (Pepcid) 10 mg PO BID [facility] Last Admin: 04/08/19 11:25 Dose: 10 mg Documented by: Vancomycin HCl 1,500 mg/ (Sodium Chloride) 530 mls @ 333.333 mls/hr IV Q12H [facility] Last Admin: 04/08/19 02:39 Dose: 333.333 mls/hr Documented by: Piperacillin Sod/Tazobactam Sod (Zosyn/Ns 4.5gm/100ml) 4.5 gm in 100 mls @ 200 mls/hr IV Q8HR [facility] Ibuprofen (Ibuprofen) 800 mg PO Q8HR PRN PRN Reason: Inflammation Losartan Potassium (Cozaar) 100 mg PO QDAY [facility] Last Admin: 04/08/19 11:25 Dose: 100 mg Documented by: Methocarbamol (Robaxin) 750 mg PO Q8H PRN PRN Reason: Pain Metoprolol Tartrate (Metoprolol) 25 mg PO BID [facility] Last Admin: 04/08/19 11:25 Dose: 25 mg Documented by: Ondansetron HCl (Zofran) 4 mg IV Q8H PRN PRN Reason: N/V unrelieved by Reglan Oxycodone/Acetaminophen (Percocet 5/325) 1 tab PO Q6H PRN PRN Reason: Pain, Moderate (4-6) Review of Systems Constitutional: fatigue, poor appetite Breasts: swelling, discharge, pain Exam - Constitutional Vitals: Temp Pulse Resp BP Pulse Ox 97.7 F 84 22 126/70 99 04/08/19 11:20 04/08/19 11:20 04/08/19 11:20 04/08/19 11:20 04/08/19 11:20 General appearance: Present: no acute distress - EENT Eyes: Present: PERRL, EOM intact ENT: hearing intact, clear oral mucosa - Neck Neck: Present: supple, normal ROM - Respiratory Respiratory effort: normal - Cardiovascular Rhythm: regular Heart Sounds: Present: S1 & S2 - Extremities Extremities: no ischemia Peripheral Pulses: within normal limits - Abdominal General gastrointestinal: Present: deferred, soft, non-tender Female genitourinary: Present: deferred - Rectal Rectal Exam: deferred - Integumentary Integumentary: Present: erythema Body Four View: 1 - Right breast with erythema and edema consistent with cellulitis; opening of the middle of her mastectomy incision with active drainage of sero-purulent fluid. Mildly tender. Left breast exam within normal limits s/p breast recon with tissue dispensing lead. 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 Plan: NPO now For excisional debridement of right breast open wound, removal of tissue dispensing lead with primary closure. We discussed the necessity of this procedure to remove the apparently infected implant which will help her heal from the infection. The patient was made aware of how this will alter her reconstructive plans for the time being, and make it so that we have to start over from the beginning with this right breast reconstruction. Patient understands and accepts this and desires to proceed with surgery. Informed consent was obtained. - Patient Problems (1) Cellulitis Current Visit: Yes Status: Acute
[2019-04-08] MEDS ORDERED: PROPOFOL 200 MG/20 ML VIAL IV ONE (14:06)
[2019-04-08] MEDS ORDERED: fentaNYL 100 MCG/2 ML INJ ONE (14:06)
[2019-04-08] MEDS ORDERED: dexAMETHasone 20 MG/5 ML VIAL ONE (14:11)
[2019-04-08] MEDS ORDERED: LIDOCAINE MPF (2%) 20 MG/1 ML VIAL 5 ML ONE (14:11)
[2019-04-08] MEDS ORDERED: GENTAMICIN 40 MG/ML VIAL 2 ML ONE (14:15)
[2019-04-08] MEDS ORDERED: ceFAZolin 1 GM VIAL ONE (14:15)
[2019-04-08] MEDS ORDERED: SODIUM CHLORIDE P/F VIAL 10 ML 10 ML ONE (14:16)
[2019-04-08] MEDS ORDERED: BACITRACIN 50,000 UNIT VIAL ONE (14:16)
[2019-04-08] MEDS ORDERED: LACTATED RINGERS 1,000 ML ONE (14:33)
--- NOTE | 2019-04-08 14:34 | Anesthesia Consultation ---
Anesthesia Consult and Med Hx Date of service: 04/08/19 - Airway Anesthetic Teeth Evaluation: Dentures ROM Head & Neck: Adequate Mental/Hyoid Distance: Adequate Mallampati Class: Class I Intubation Access Assessment: Good - Pulmonary Exam CTA: Yes - Cardiac Exam Cardiac Exam: RRR - Pre-Operative Health Status ASA Pre-Surgery Classification: ASA2 Proposed Anesthetic Plan: General - Pulmonary Hx Smoking: No Hx Respiratory Symptoms: No Hx Sleep Apnea: No (HIGH NAHEED RISK) - Cardiovascular System Hx Hypertension: Yes Hx Cardia Arrhythmia: No - Central Nervous System Hx Neuromuscular Disorder: No Hx Psychiatric Problems: No - Gastrointestinal Hx Gastroesophageal Reflux Disease: No - Endocrine Hx Renal Disease: No Hx Liver Disease: No Hx Thyroid Disease: No - Other Systems Hx Alcohol Use: No Hx Substance Use: No Hx Cancer: Yes (Bilateral breast.) Hx Obesity: Yes (BMI- 37.6) - Additional Comments Anesthesia Medical History Comments: Patient denied previous anesthesia related complications.
--- NOTE | 2019-04-08 14:36 | Anesthesia Day of Surgery ---
Anesthesia Day of Surgery - Day of Surgery Patient Examined: Yes Patient H&P Reviewed: Yes Patient is NPO: No (Tea 6 hours ago)
[2019-04-08] MEDS: PIPERACIL/TAZOBACTA 4.5/NS 100 4.5 GM/100 ML VIAL IV SCH ×2 (14:50→22:26)
[2019-04-08] MEDS ORDERED: ONDANSETRON 4 MG/2 ML INJ ONE (15:00)
[2019-04-08] MEDS ORDERED: SUCCINYLCHOLINE CHLORIDE 200 MG/10 ML INJ MDV ONE (15:02)
[2019-04-08] MEDS ORDERED: SODIUM CHLORIDE 0.9% IRRIG SOLN 2000 ML IR ONE (15:43)
[2019-04-08] MEDS ORDERED: BACITRACIN 50,000 UNIT VIAL IR ONE (15:43)
[2019-04-08] MEDS ORDERED: SODIUM CHLORIDE 0.9% IRR 1,500 ML BOTTLE IR ONE ×2 (16:00)
[2019-04-08] MEDS ORDERED: PHENYLEPHRINE/NS 1,000 MCG/10 ML SYRINGE (OR USE) IV ONE (16:04)
--- NOTE | 2019-04-08 16:37 | Operative Report ---
Operative Report Operative Report: Plastic Surgery Operative Report Preoperative Diagnosis: Acquired absence of the bilateral breasts; Right breast cellulitis; open wound of the right breast with tissue glass lathe operator exposure and infection. Postoperative Diagnosis: Same Procedure: Excisional debridement of right breast wound; removal of tissue e xpander. Surgeon: Shannan Painter MD Loading Dock Hand: None Anesthesia: General Specimens: swab cultures; right breast skin; tissue glass lathe operator. EBL: Minimal Indications: This patient is a 63 year old female who underwent bilateral breast reconstruction immediately following mastectomy with a tissue glass lathe operator Flex HD. She noticed that her right breast was more swollen than the left yesterday, and painful. She also noticed some fluid seeping from her incision, prompting her to report the ER last night. There she was admitted and started on IV antibiotics due to a leukocytosis of 16 her physical exam. Today she was evlauted at bedside and found to have inferior pole erythema and edema as well as a central breast incision erosion/opening up of her surgical incision with seropurulent fluid draining out of it. The decision was made to take the patient back to the operating room urgently for excision of the wound as well as removal of the implant and washout due to the obvious infection. Informed consent was obtained. Procedure: After review of pertinent history and physical exam findings patient was brought into the operating room and placed supine on the OR table. After induction of adequate endotracheal anesthesia the left breast was prepped and draped in the usual sterile surgical fashion. To begin, using the existing open wound and excising it completely (total excision 15x7cm) the right breast pocket was opened to reveal approximately 100 mL of seroma fluid collected in the implant pocket. A curette was used to debride the capsule tissue of the gelatinous film overlying it. Pulse lavage was then used to cleanse the subcutaneous space. At this time the decision was made to remove the implant and not to replace it. Using electrocautery, all loose Flex HD was removed after which point the 750cc [place] tissue glass lathe operator was also removed and the anterior capsule was scored to encourage pocket closure. A 19 [place] Michael drain was placed and the incision was closed in 3 layers using a 3-0 Monocryl Quill and 2- 0 Monocryl suture. The incision was then dressed with Telfa and tegaderm and the drain placed to suction. A surgical bra was placed. The patient was then awakened from general anesthesia and transferred to the recovery room in stable condition. There were no complications. All sponge needle and instrument counts were correct at the end of the case.
--- NOTE | 2019-04-08 17:50 | Progress Note ---
Assessment and Plan Assessment and Plan Right breast cellulitis Leukocytosis likely due to sepsis History of breast cancer status post bilateral mastectomy HTN - continue metoprolol and losartan - - We will admit the patient to medr bed - We will obtain blood culture, wound culture - Place on empiric antibiotics for now - Continue IV fluid hydration and monitor BP - We'll resume home meds - Provide GI and DVT prophylaxis Radiological data: CTA chest 1. Stable chest wall edema and skin thickening without visualization of a fluid collection/abscess. 2. No other acute abnormality of the chest. 3. Additional findings as above. Going for surgery today Subjective Date of service: 04/08/19 Principal diagnosis: Rt Breast cellulitis Interval history: 63 year old female breast CA patient, s/p bilateral masectomy January 13 2019 and currently on chemotherapy infusions every 2 weeks presented to the ER today complaining of clear yellow drainage from post masectomy site in the right breast area for one day. She also reports associated erythema and increasing swelling to the area. She states she has been getting a special "injection" in the site to prepare for breast implant. Her last injection was about 3 weeks ago. She states that the area is nontender. She denies any fever or chills. Denies any recent antibiotic use. Denies hx of MRSA. She reports no other symptoms at this time. Her Oncologist is Dr Olivares, and her Surgeon is Dr Garcia. In the ER her white count was elevated, CT chest showed no fluid collection. She was placed on iv abx, obtained cx and called for admission for further Mx. Objective - Constitutional Vitals: Vital Signs - 12hr 04/08/19 04/08/19 04/08/19 06:15 11:20 14:10 Temperature 97.0 F L 97.7 F 100.0 F H Pulse Rate 85 84 90 Respiratory 16 22 20 Rate Blood Pressure 129/73 126/70 127/69 O2 Sat by Pulse 96 99 99 Oximetry 04/08/19 04/08/19 04/08/19 14:30 16:31 16:35 Temperature 100.0 F H 97.8 F Pulse Rate 90 74 73 Respiratory 20 22 18 Rate Blood Pressure 127/69 97/50 97/49 O2 Sat by Pulse 99 100 100 Oximetry 04/08/19 04/08/19 04/08/19 16:40 16:45 16:50 Temperature Pulse Rate 72 102 H 100 H Respiratory 20 18 20 Rate Blood Pressure 105/56 112/56 117/63 O2 Sat by Pulse 98 97 97 Oximetry 04/08/19 04/08/19 17:00 17:15 Temperature Pulse Rate 96 H 101 H Respiratory 22 22 Rate Blood Pressure 119/74 130/76 O2 Sat by Pulse 96 95 Oximetry General appearance: Present: no acute distress, well-nourished - EENT Eyes: PERRL, EOM intact ENT: hearing intact, clear oral mucosa Ears: bilateral: normal - Neck Neck: supple, normal ROM - Respiratory Respiratory effort: normal Respiratory: bilateral: CTA - Breasts Breasts: tender, other (Rt breast Erythema and tender) - Cardiovascular Rhythm: regular Heart Sounds: Present: S1 & S2. Absent: gallop, rub Extremities: pulses intact, No edema, normal color, Full ROM - Gastrointestinal General gastrointestinal: Present: soft, non-tender, non-distended, normal bowel sounds - Genitourinary Female genitourinary: normal - Integumentary Integumentary: clear, warm, dry - Musculoskeletal Musculoskeletal: 1, strength equal bilaterally - Neurologic Neurologic: moves all extremities - Psychiatric Psychiatric: memory intact, appropriate mood/affect, intact judgment & insight - Labs CBC & Chem 7: 04/08/19 09:14 04/07/19 11:47 Labs: Abnormal lab results 04/08/19 Range/Units 09:14 WBC 15.8 H (4.5-11.0) K/mm3 MCH 26 L (28-32) pg RDW 15.9 H (13.2-15.2) %
[2019-04-08] MEDS: ENOXAPARIN 40 MG/0.4 ML INJ SUB-Q SCH (22:26)
[2019-04-08] MEDS: LACTATED RINGERS 1,000 ML IV SCH (22:29)
[2019-04-09] MEDS: VANCOMYCIN 1,500 MG in SODIUM CHLORIDE 0.9% 500 ML 500 ML IV SCH (03:39)
[2019-04-09] MEDS: PIPERACIL/TAZOBACTA 4.5/NS 100 4.5 GM/100 ML VIAL IV SCH ×2 (05:47→13:42)
[2019-04-09] MEDS: LOSARTAN 50 MG TAB PO SCH (10:21)
[2019-04-09] MEDS: FAMOTIDINE 10 MG TAB PO SCH ×2 (10:21→22:17)
[2019-04-09] MEDS: CHLORTHALIDONE 25 MG TAB PO SCH (10:22)
[2019-04-09] MEDS: METOPROLOL TARTRATE 25 MG TAB PO SCH ×2 (10:22→22:34)
[2019-04-09] MEDS: DOCUSATE SODIUM 100 MG CAP PO SCH ×2 (10:23→22:17)
--- NOTE | 2019-04-09 13:57 | Progress Note ---
Assessment and Plan Assessment and plan: --Right breast cellulitis : s/p debrediment ,wound care,antibiotics f/u cultures. ID consult --Leukocytosis likely due to sepsis treat the underlying cause --History of breast cancer status post bilateral mastectomy Stable --HTN - continue metoprolol and losartan --Obesity: adv weight reduction --DVT prophylaxis: lopvenox possible DC on halfway Abx when stable. Plan of care reviwed with patient and her nurse History Interval history: Patient seen and examined,medical records reviewed No new complaints vital signs reviewed Hospitalist Physical - Constitutional Vitals: Temp Pulse Resp BP Pulse Ox 97.4 F L 70 22 129/83 97 04/09/19 12:23 04/09/19 12:23 04/09/19 12:23 04/09/19 12:23 04/09/19 12:23 General appearance: Present: no acute distress, well-nourished, obese - EENT Eyes: Present: PERRL, EOM intact - Neck Neck: Present: supple, normal ROM - Respiratory Respiratory: bilateral: diminished, negative: rales, rhonchi, wheezing - Cardiovascular Rhythm: regular Heart Sounds: Present: S1 & S2 - Extremities Extremities: no ischemia, No edema - Abdominal General gastrointestinal: soft, non-tender, non-distended, normal bowel sounds - Integumentary Integumentary: Present: clear, warm - Psychiatric Psychiatric: appropriate mood/affect, cooperative - Neurologic Neurologic: moves all extremities Results - Labs CBC & Chem 7: 04/08/19 09:14 04/07/19 11:47 Labs: Laboratory Last Values WBC 15.8 K/mm3 (4.5-11.0) H 04/08/19 09:14 RBC 3.85 M/mm3 (3.65-5.03) 04/08/19 09:14 Hgb 10.2 gm/dl (10.1-14.3) 04/08/19 09:14 Hct 31.2 % (30.3-42.9) 04/08/19 09:14 MCV 81 fl (79-97) 04/08/19 09:14 MCH 26 pg (28-32) L 04/08/19 09:14 MCHC 33 % (30-34) 04/08/19 09:14 RDW 15.9 % (13.2-15.2) H 04/08/19 09:14 Plt Count 316 K/mm3 (140-440) 04/08/19 09:14 Add Manual Diff Complete 04/07/19 11:47 Total Counted 100 04/07/19 11:47 Seg Neuts % (Manual) 94.0 % (40.0-70.0) H 04/07/19 11:47 Band Neutrophils % 1.0 % 04/07/19 11:47 Lymphocytes % (Manual) 3.0 % (13.4-35.0) L 04/07/19 11:47 Reactive Lymphs % (Man) 0 % 04/07/19 11:47 Monocytes % (Manual) 2.0 % (0.0-7.3) 04/07/19 11:47 Eosinophils % (Manual) 0 % (0.0-4.3) 04/07/19 11:47 Basophils % (Manual) 0 % (0.0-1.8) 04/07/19 11:47 Metamyelocytes % 0 % 04/07/19 11:47 Myelocytes % 0 % 04/07/19 11:47 Promyelocytes % 0 % 04/07/19 11:47 Blast Cells % 0 % 04/07/19 11:47 Nucleated RBC % Not Reportable 04/07/19 11:47 Seg Neutrophils # Man 15.0 K/mm3 (1.8-7.7) H 04/07/19 11:47 Band Neutrophils # 0.2 K/mm3 04/07/19 11:47 Lymphocytes # (Manual) 0.5 K/mm3 (1.2-5.4) L 04/07/19 11:47 Abs React Lymphs (Man) 0.0 K/mm3 04/07/19 11:47 Monocytes # (Manual) 0.3 K/mm3 (0.0-0.8) 04/07/19 11:47 Eosinophils # (Manual) 0.0 K/mm3 (0.0-0.4) 04/07/19 11:47 Basophils # (Manual) 0.0 K/mm3 (0.0-0.1) 04/07/19 11:47 Metamyelocytes # 0.0 K/mm3 04/07/19 11:47 Myelocytes # 0.0 K/mm3 04/07/19 11:47 Promyelocytes # 0.0 K/mm3 04/07/19 11:47 Blast Cells # 0.0 K/mm3 04/07/19 11:47 WBC Morphology Not Reportable 04/07/19 11:47 Hypersegmented Neuts Not Reportable 04/07/19 11:47 Hyposegmented Neuts Not Reportable 04/07/19 11:47 Hypogranular Neuts Not Reportable 04/07/19 11:47 Smudge Cells Not Reportable 04/07/19 11:47 Toxic Granulation Not Reportable 04/07/19 11:47 Toxic Vacuolation Not Reportable 04/07/19 11:47 Dohle Bodies Not Reportable 04/07/19 11:47 Pelger-Huet Anomaly Not Reportable 04/07/19 11:47 Oumar Rods Not Reportable 04/07/19 11:47 Platelet Estimate Consistent w auto 04/07/19 11:47 Clumped Platelets Not Reportable 04/07/19 11:47 Plt Clumps, EDTA Not Reportable 04/07/19 11:47 Large Platelets Not Reportable 04/07/19 11:47 Giant Platelets Not Reportable 04/07/19 11:47 Platelet Satelliting Not Reportable 04/07/19 11:47 Plt Morphology Comment Not Reportable 04/07/19 11:47 RBC Morphology Not Reportable 04/07/19 11:47 Dimorphic RBCs Not Reportable 04/07/19 11:47 Polychromasia Not Reportable 04/07/19 11:47 Hypochromasia Not Reportable 04/07/19 11:47 Poikilocytosis Not Reportable 04/07/19 11:47 Anisocytosis 1+ 04/07/19 11:47 Microcytosis Not Reportable 04/07/19 11:47 Macrocytosis Not Reportable 04/07/19 11:47 Spherocytes Not Reportable 04/07/19 11:47 Pappenheimer Bodies Not Reportable 04/07/19 11:47 Sickle Cells Not Reportable 04/07/19 11:47 Target Cells Not Reportable 04/07/19 11:47 Tear Drop Cells Not Reportable 04/07/19 11:47 Ovalocytes Not Reportable 04/07/19 11:47 Helmet Cells Not Reportable 04/07/19 11:47 [place] Bodies Not Reportable 04/07/19 11:47 [place] Rings Not Reportable 04/07/19 11:47 Shilpa Cells Not Reportable 04/07/19 11:47 Bite Cells Not Reportable 04/07/19 11:47 Crenated Cell Not Reportable 04/07/19 11:47 Elliptocytes Not Reportable 04/07/19 11:47 Acanthocytes (Spur) Not Reportable 04/07/19 11:47 Rouleaux Not Reportable 04/07/19 11:47 Hemoglobin C Crystals Not Reportable 04/07/19 11:47 Schistocytes Not Reportable 04/07/19 11:47 Malaria parasites Not Reportable 04/07/19 11:47 Hal Bodies Not Reportable 04/07/19 11:47 Hem Pathologist Commnt No 04/07/19 11:47 VBG pH 7.381 (7.320-7.420) 04/07/19 12:20 Sodium 140 mmol/L (137-145) 04/07/19 11:47 Potassium 4.5 mmol/L (3.6-5.0) 04/07/19 11:47 Chloride 100.3 mmol/L (98-107) 04/07/19 11:47 Carbon Dioxide 21 mmol/L (22-30) L 04/07/19 11:47 Anion Gap 23 mmol/L 04/07/19 11:47 BUN 6 mg/dL (7-17) L 04/07/19 11:47 Creatinine 0.8 mg/dL (0.7-1.2) 04/07/19 11:47 Estimated GFR > 60 ml/min 04/07/19 11:47 BUN/Creatinine Ratio 8 % 04/07/19 11:47 Glucose 85 mg/dL (65-100) 04/07/19 11:47 Lactic Acid 0.80 mmol/L (0.7-2.0) 04/07/19 14:34 Calcium 8.4 mg/dL (8.4-10.2) 04/07/19 11:47 Total Bilirubin 0.40 mg/dL (0.1-1.2) 04/07/19 11:47 AST 29 units/L (5-40) 04/07/19 11:47 ALT 14 units/L (7-56) 04/07/19 11:47 Alkaline Phosphatase 98 units/L (35-129) 04/07/19 11:47 Total Protein 6.7 g/dL (6.3-8.2) 04/07/19 11:47 Albumin 3.4 g/dL (3.9-5) L 04/07/19 11:47 Albumin/Globulin Ratio 1.0 % 04/07/19 11:47 Active Medications - Current Medications Current Medications: Generic Name Dose Route Start Last Admin Trade Name Freq PRN Reason Stop Dose Admin Acetaminophen 650 mg 04/07/19 17:38 Tylenol PO Q4H PRN Pain MILD(1-3)/Fever >100.5/LEON Chlorthalidone 100 mg 04/08/19 10:00 04/09/19 10:22 Thalitone PO 100 mg QDAY CELESTINO Administration Docusate Sodium 100 mg 04/07/19 22:00 04/09/19 10:23 Colace PO Not Given BID CELESTINO Enoxaparin Sodium 40 mg 04/07/19 22:00 04/08/19 22:26 Enoxaparin SUB-Q 40 mg QDAY@2200 CELESTINO Administration Famotidine 10 mg 04/07/19 22:00 04/09/19 10:21 Pepcid PO 10 mg BID CELESTINO Administration Vancomycin HCl 1,500 mg/ 530 mls @ 333.333 mls/hr 04/08/19 02:00 04/09/19 03:39 Sodium Chloride IV 333.333 mls/hr Q12H CELESTINO Administration Piperacillin Sod/Tazobactam Sod 4.5 gm in 100 mls @ 200 mls/hr 04/08/19 14:00 04/09/19 13:42 Zosyn/Ns 4.5gm/100ml IV 200 mls/hr Q8HR CELESTINO Administration Lactated Ringer's 1,000 mls @ 75 mls/hr 04/08/19 15:30 04/08/19 22:29 Lactated Ringers IV 75 mls/hr DIRECT CELESTINO Administration Ibuprofen 800 mg 04/07/19 17:35 Ibuprofen PO Q8HR PRN Inflammation Losartan Potassium 100 mg 04/08/19 10:00 04/09/19 10:21 Cozaar PO 100 mg QDAY CELESTINO Administration Methocarbamol 750 mg 04/07/19 17:35 Robaxin PO Q8H PRN Pain Metoprolol Tartrate 25 mg 04/07/19 22:00 04/09/19 10:22 Metoprolol PO 25 mg BID CELESTINO Administration Ondansetron HCl 4 mg 04/07/19 17:38 Zofran IV Q8H PRN N/V unrelieved by Ct Oxycodone/Acetaminophen 1 tab 04/07/19 17:38 Percocet 5/325 PO Q6H PRN Pain, Moderate (4-6)
--- NOTE | 2019-04-09 15:46 | Consultation ---
History of Present Illness - Reason for Consult Consult date: 04/09/19 right breast manager commercial infection Requesting physician: HERNANDEZ PEARL - History of Present Illness 63 y/o female with history of breast cancer and bilateral mastectomies with reconstruction on 01/13/2019 s/p chemo via port admitted on 04/07/2019 due to 24 hour history right breast pain, edema and drainage from surgical site. She underwent successful expansion of her expanders. Plan was to undergo a planned second stage of reconstruction to place implants. Denies fever, chills, N/V/D. Denies cough, SOB, urinary symptoms. In the ED, temp 100, HR 102, WBC 16. Creat 0.8. CT chset no collections, noted chest wall edema and skin thickening. Blood culture 04/07/2019 no growth today. ID consulted for management of right breast infection. Review of Systems: Bold if positive, otherwise negative General: fevers, chills, body aches HEENT: visual disturbance, diplopia, eye pain Respiratory: cough, sputum, hemoptysis, shortness of breath Cardiovascular: chest pain, syncope Gastrointestinal: nausea, vomiting, diarrhea, abdominal pain Genitourinary: dysuria, hematuria, flank pain Musculoskeletal: neck pain, back pain, joint pain, edema Neurologic: headaches, seizures Hematologic: easy bruising or bleeding Endocrine: night sweats, acute weight loss Skin:right breast wound drainage and pain Psychiatric: suicidal, homicidal ideation Past History Past Medical History: hypertension, other (stage 2 breast cancer) Past Surgical History: mastectomy (b/l) Social history: lives with family. denies: smoking, alcohol abuse Family history: no significant family history Medications and Allergies Allergies Allergy/AdvReac Type Severity Reaction Status Date / Time lisinopril AdvReac Cough Verified 02/19/19 12:24 Home Medications Medication Instructions Recorded Confirmed Last Taken Type Chlorthalidone 100 mg PO DAILY 12/17/18 04/07/19 02/22/19 18:00 History Metoprolol [Lopressor] 25 mg PO BID 12/22/18 04/07/19 02/22/19 18:00 History Ibuprofen [Motrin] 800 mg PO Q8HR PRN 02/19/19 04/07/19 02/16/19 09:00 History Losartan [Cozaar] 100 mg PO QDAY 02/19/19 04/07/1919 18:00 History methOCARBAMOL [Robaxin TAB] 750 mg PO Q8H PRN 02/19/19 04/07/19 02/22/19 18:00 History Active Meds: Active Medications Acetaminophen (Tylenol) 650 mg PO Q4H PRN PRN Reason: Pain MILD(1-3)/Fever >100.5/LEON Chlorthalidone (Thalitone) 100 mg PO QDAY COUNT INCLUDES THE [facility] Last Admin: 04/09/19 10:22 Dose: 100 mg Documented by: Docusate Sodium (Colace) 100 mg PO BID COUNT INCLUDES THE [facility] Last Admin: 04/09/19 10:23 Dose: Not Given Documented by: Enoxaparin Sodium (Enoxaparin) 40 mg SUB-Q QDAY@2200 COUNT INCLUDES THE [facility] Last Admin: 04/08/19 22:26 Dose: 40 mg Documented by: Famotidine (Pepcid) 10 mg PO BID COUNT INCLUDES THE [facility] Last Admin: 04/09/19 10:21 Dose: 10 mg Documented by: Piperacillin Sod/Tazobactam Sod (Zosyn/Ns 4.5gm/100ml) 4.5 gm in 100 mls @ 200 mls/hr IV Q8HR COUNT INCLUDES THE [facility] Last Admin: 04/09/19 13:42 Dose: 200 mls/hr Documented by: Lactated Ringer's (Lactated Ringers) 1,000 mls @ 75 mls/hr IV DIRECT COUNT INCLUDES THE [facility] Last Admin: 04/08/19 22:29 Dose: 75 mls/hr Documented by: Vancomycin HCl 1,250 mg/ (Sodium Chloride) 275 mls @ 166.667 mls/hr IV Q12H COUNT INCLUDES THE [facility] Ibuprofen (Ibuprofen) 800 mg PO Q8HR PRN PRN Reason: Inflammation Losartan Potassium (Cozaar) 100 mg PO QDAY COUNT INCLUDES THE [facility] Last Admin: 04/09/19 10:21 Dose: 100 mg Documented by: Methocarbamol (Robaxin) 750 mg PO Q8H PRN PRN Reason: Pain Metoprolol Tartrate (Metoprolol) 25 mg PO BID COUNT INCLUDES THE [facility] Last Admin: 04/09/19 10:22 Dose: 25 mg Documented by: Ondansetron HCl (Zofran) 4 mg IV Q8H PRN PRN Reason: N/V unrelieved by Reglan Oxycodone/Acetaminophen (Percocet 5/325) 1 tab PO Q6H PRN PRN Reason: Pain, Moderate (4-6) Physical Examination - Physical Exam Narrative exam: Constitutional: Alert, cooperative. No acute distress Head, Ears, Nose: Normocephalic, atraumatic. External ears, nose normal Eyes: Conjunctivae/corneas clear. No icterus. No ptosis. Neck: Supple, no meningeal signs Oral: dentition fair, no thrush Cardiovascular: S1, S2 normal. Respiratory: Good air entry, clear to auscultation bilaterally GI: Soft, non-tender; uterus Musculoskeletal: No pedal edema, no cyanosis. b/l leg wounds Skin: +right breast with surgical dressings +drain with blood, left breast with manager commercial and wound looks good Hem/Lymphatic: No palpable cervical or supraclavicular nodes. No lymphangitis Psych: Mood ok. Affect normal Neurological: Awake, alert, oriented. paraplegic - Constitutional Vitals: Vital Signs Temp Pulse Resp BP Pulse Ox 97.4 F L 70 22 129/83 97 04/09/19 12:23 04/09/19 12:23 04/09/19 12:23 04/09/19 12:23 04/09/19 12:23 Temperature -Last 24 Hours Temperature 97.4 F Temperature 98.3 F Temperature 98.4 F Temperature 97.8 F Results - Labs CBC & Chem 7: 04/08/19 09:14 04/07/19 11:47 Labs: Abnormal lab results 04/09/19 Range/Units 13:09 Vancomycin Trough 20.5 H (5.0-20.0) ug/mL Assessment and Plan Cultures: Wound culture 04/07/2019 Staph aureus Blood culture 04/07/2019 no growth today Assessment: 63 y/o female with history of breast cancer and bilateral mastectomies with reconstruction on 01/13/2019 s/p chemo via port admitted on 04/07/2019 due to 24- hour history right breast pain, edema and drainage from surgical site: 1) Sepsis: present on admission with fever, leukocytosis; etiology likely right breast manager commercial infection. 2) Right breast tissue manager commercial infection with cellulitis due to Staph aureus: CT chest no collections, noted chest wall edema and skin thickening. S/p manager commercial removal on 04/08/2019. Wound culture 04/07/2019 Staph aureus. Recs: stop zosyn continue vancomycin f/u wound culture and blood cultures anticipate to d/c on linezolid 600 mg po q 12hour for 2-3 weeks, please provide Rx for 2 weeks. Ask case managers to call local pharmacy to be sure insurance covers Rx. ID clinic f/u in 2 weeks monitor inpatient until no fever for 24h and improving leukocytosis monitor contralateral manager commercial as there is risk for infection Will follow. Thanks for consultation Shanon Olson MD Infectious Diseases [employer] [facility] M [phone] O [phone]
--- NOTE | 2019-04-09 16:25 | Progress Note ---
Assessment and Plan - Patient Problems (1) Cellulitis Current Visit: Yes Status: Acute Subjective Date of service: 04/09/19 Principal diagnosis: Rt Breast cellulitis Interval history: Plastic Surgery Progress Note Ms. Johnson is doing really well POD#1 s/p right breast tissue billing coordinator removal with wound debridement. She still does not have much of an appetite but deneis nausea/vomiting, fever or chills. She has been oob to restroom and chair. Afebrile over last 24 hrs, VSS Right chest: Dressings c/d/i, Michael drain in place with serosanguinous output. No hematoma or seroma. Erythema of the inferior pole improving. Micro: Surface wound swab from 04/07 growing Staph aureus, sensitivities pending. Wound cultures from the OR 04/08 show no growth so far. A/P: POD#1 s/p right breast tissue billing coordinator removal with wound debridement, improving Continue broad spectrum abx while awaiting culture results. Will add Ensure shakes TID to diet to increase PO intake to optimize healing. Pt encouraged to get oob and ambulate as tolerated. Once cultures resulted, she is ok for discharge from plastics standpoint; instructed to call the office for her follow up appt. Objective - Constitutional Vitals: Vital Signs - 12hr 04/09/19 04/09/19 04/09/19 05:38 10:20 10:21 Temperature 98.3 F Pulse Rate 101 H 83 Respiratory 18 Rate Blood Pressure 118/67 153/87 153/87 O2 Sat by Pulse 100 Oximetry 04/09/19 12:23 Temperature 97.4 F L Pulse Rate 70 Respiratory 22 Rate Blood Pressure 129/83 O2 Sat by Pulse 97 Oximetry - Labs CBC & Chem 7: 04/08/19 09:14 04/07/19 11:47 Labs: Abnormal lab results 04/09/19 Range/Units 13:09 Vancomycin Trough 20.5 H (5.0-20.0) ug/mL Medications & Allergies - Medications Allergies/Adverse Reactions: Allergies lisinopril Adverse Reaction (Verified 02/19/19 12:24) Cough Home Medications: Home Medications Medication Instructions Recorded Confirmed Last Taken Type Chlorthalidone 100 mg PO DAILY 12/17/18 04/07/19 02/22/19 18:00 History Metoprolol [Lopressor] 25 mg PO BID 12/22/18 04/07/19 02/22/19 18:00 History Ibuprofen [Motrin] 800 mg PO Q8HR PRN 02/19/19 04/07/19 02/16/19 09:00 History Losartan [Cozaar] 100 mg PO QDAY 02/19/19 04/07/19 02/22/19 18:00 History methOCARBAMOL [Robaxin TAB] 750 mg PO Q8H PRN 02/19/19 04/07/19 02/22/19 18:00 History Active Medications: Generic Name Dose Route Start Last Admin Trade Name Freq PRN Reason Stop Dose Admin Acetaminophen 650 mg 04/07/19 17:38 Tylenol PO Q4H PRN Pain MILD(1-3)/Fever >100.5/LEON Chlorthalidone 100 mg 04/08/19 10:00 04/09/19 10:22 Thalitone PO 100 mg QDAY CELESTINO Administration Docusate Sodium 100 mg 04/07/19 22:00 04/09/19 10:23 Colace PO Not Given BID CELESTINO Enoxaparin Sodium 40 mg 04/07/19 22:00 04/08/19 22:26 Enoxaparin SUB-Q 40 mg QDAY@2200 CELESTINO Administration Famotidine 10 mg 04/07/19 22:00 04/09/19 10:21 Pepcid PO 10 mg BID CELESTINO Administration Piperacillin Sod/Tazobactam Sod 4.5 gm in 100 mls @ 200 mls/hr 04/08/19 14:00 04/09/19 13:42 Zosyn/Ns 4.5gm/100ml IV 200 mls/hr Q8HR CELESTINO Administration Lactated Ringer's 1,000 mls @ 75 mls/hr 04/08/19 15:30 04/08/19 22:29 Lactated Ringers IV 75 mls/hr DIRECT CELESTINO Administration Vancomycin HCl 1,250 mg/ 275 mls @ 166.667 mls/hr 04/09/19 15:30 Sodium Chloride IV Q12H CELESTINO Ibuprofen 800 mg 04/07/19 17:35 Ibuprofen PO Q8HR PRN Inflammation Losartan Potassium 100 mg 04/08/19 10:00 04/09/19 10:21 Cozaar PO 100 mg QDAY CELESTINO Administration Methocarbamol 750 mg 04/07/19 17:35 Robaxin PO Q8H PRN Pain Metoprolol Tartrate 25 mg 04/07/19 22:00 04/09/19 10:22 Metoprolol PO 25 mg BID CELESTINO Administration Ondansetron HCl 4 mg 04/07/19 17:38 Zofran IV Q8H PRN N/V unrelieved by Ct Oxycodone/Acetaminophen 1 tab 04/07/19 17:38 Percocet 5/325 PO Q6H PRN Pain, Moderate (4-6)
[2019-04-09] MEDS: VANCOMYCIN 1,250 MG in SODIUM CHLORIDE 0.9% 250ML 250 ML IV SCH (16:31)
[2019-04-09] MEDS: ENOXAPARIN 40 MG/0.4 ML INJ SUB-Q SCH (22:17)
[2019-04-09] MEDS: LACTATED RINGERS 1,000 ML IV SCH (22:25)
[2019-04-10] MEDS: VANCOMYCIN 1,250 MG in SODIUM CHLORIDE 0.9% 250ML 250 ML IV SCH (04:15)
[2019-04-10] MEDS: VANCOMYCIN 1,500 MG in SODIUM CHLORIDE 0.9% 500 ML 500 ML IV SCH (04:35)
[2019-04-10] MEDS: FAMOTIDINE 10 MG TAB PO SCH (09:17)
[2019-04-10] MEDS: DOCUSATE SODIUM 100 MG CAP PO SCH (09:18)
[2019-04-10] MEDS: LOSARTAN 50 MG TAB PO SCH (09:18)
[2019-04-10] MEDS: METOPROLOL TARTRATE 25 MG TAB PO SCH (09:19)
[2019-04-10] MEDS: CHLORTHALIDONE 25 MG TAB PO SCH (09:19)
[2019-04-10 12:30] VITALS: BP 134/70
--- NOTE | 2019-04-10 13:12 | Discharge Summary ---
Providers - Providers Date of Admission: 04/07/19 16:21 Date of discharge: 04/10/19 Attending physician: HERNANDEZ PEARL 04/07/19 15:39 Consult to Physician [CONS] Routine Comment: Consulting Provider: LUIS FERNANDO ROQUE Physician Instructions: Reason For Exam: Cellulitis post masectomy site 04/08/19 11:12 Consult to Wound/ET Nurse [CONS] Routine Reason For Exam: wound eval 04/09/19 13:52 Consult to Physician [CONS] Routine Comment: Consulting Provider: SUSANNAH KABA Physician Instructions: Reason For Exam: rt breast cellulitis/sepsis Primary care physician: MICHEL PEÑA Hospitalization Reason for admission: Drainage from rt breast wound Condition: Stable Procedures: Tissue brake mechanic removal and surgical debredement rt breast Hospital course: 63 year old female breast CA patient, s/p bilateral masectomy January 13 2019 and currently on chemotherapy infusions every 2 weeks presented to the ER today complaining of clear yellow drainage from post masectomy site in the right breast area for one day. She also reports associated erythema and increasing swelling to the area. She states she has been getting a special "injection" in the site to prepare for breast implant. Her last injection was about 3 weeks ago. She states that the area is nontender. She denies any fever or chills. Denies any recent antibiotic use. No hx of MRSA. She reports no other symptoms at this time. Patient's Surgeon is Dr Garcia. In the ER her white count was elevated, CT chest showed no fluid collection. She was placed on iv abx, obtained cx and called for admission for further management.Wound cultures positive for staph aureus,on IV Vancomycin,and discharged on Zyvox Evaluated by ID optimised therapy with antibiotics.Cleared by breast surgeon and ID for DC and f/u per schedule. Stable at discharge Discarge Diagnosis: --Right breast cellulitis : s/p debrediment ,wound care,antibiotics f/u cultures. ID consult --Leukocytosis likely due to sepsis treat the underlying cause --History of breast cancer status post bilateral mastectomy Stable --HTN - continue metoprolol and losartan --Obesity: adv weight reduction --DVT prophylaxis: lopvenox DC on Zyvox per when stable. Plan of care reviwed with patient and her nurse Stable at discharge. Disposition: DC-01 TO HOME OR SELFCARE Time spent for discharge: 32 min Core Measure Documentation - Palliative Care Palliative Care/ Comfort Measures: Not Applicable - Core Measures Any of the following diagnoses?: none Exam - Constitutional Vitals: Temp Pulse Resp BP Pulse Ox 97.0 F L 65 20 134/70 98 04/10/19 11:20 04/10/19 11:20 04/10/19 11:20 04/10/19 11:20 04/10/19 11:20 General appearance: Present: no acute distress, well-nourished, obese - EENT Eyes: Present: PERRL, EOM intact - Neck Neck: Present: supple, normal ROM - Respiratory Respiratory effort: normal Respiratory: bilateral: diminished, negative: rales, rhonchi, wheezing - Cardiovascular Rhythm: regular Heart Sounds: Present: S1 & S2 - Extremities Extremities: no ischemia, No edema - Abdominal General gastrointestinal: Present: soft, non-tender, non-distended, normal bowel sounds - Integumentary Integumentary: Present: clear, warm - Musculoskeletal Musculoskeletal: strength equal bilaterally - Psychiatric Psychiatric: appropriate mood/affect, cooperative - Neurologic Neurologic: CNII-XII intact, moves all extremities Plan Activity: advance as tolerated, fall precautions Diet: low salt Wound: per wound nurse instructions Additional Instructions: Advised to see Dr Garcia per schedule Follow up with: MICHEL PEÑA MD [Primary Care Provider] - 7 Days LUIS FERNANDO ROQUE MD [Staff Physician] - 04/12/19 Forms: Accompanied Note Prescriptions: oxyCODONE /ACETAMINOPHEN [Percocet 5/325 mg] 1 tab PO Q8H PRN #15 tablet PRN Reason: Pain, Moderate (4-6) Linezolid [Zyvox] 600 mg PO BID #28 tablet
== END 2019-04-10 15:27 | disposition home or self-care (01) | DRG 901 ==
LOC: ED 09:54 → 3A 16:21
PROVIDERS: ADMIT Internal Medicine; ATTEND Internal Medicine
PROC: 0JB60ZZ Excision of Chest Subcutaneous Tissue and Fascia, Open Approach (ICD-10-PCS; principal; 2019-04-08)
PROC: 0HPT0NZ Removal of Tissue Expander from Right Breast, Open Approach (ICD-10-PCS; 2019-04-08)
DX: T85.79XA Infection and inflammatory reaction due to other internal prosthetic devices, implants and grafts, initial encounter (principal); A41.9 Sepsis, unspecified organism; B95.61 Methicillin susceptible Staphylococcus aureus infection as the cause of diseases classified elsewhere; N61.0 Mastitis without abscess; Y83.8 Other surgical procedures as the cause of abnormal reaction of the patient, or of later complication, without mention of misadventure at the time of the procedure; E66.9 Obesity, unspecified; Z90.13 Acquired absence of bilateral breasts and nipples; Z88.6 Allergy status to analgesic agent; Z79.899 Other long term (current) drug therapy; Z85.3 Personal history of malignant neoplasm of breast; Z92.21 Personal history of antineoplastic chemotherapy; Z68.38 Body mass index [BMI] 38.0-38.9, adult; Z71.3 Dietary counseling and surveillance; Y92.098 Other place in other non-institutional residence as the place of occurrence of the external cause
CPT/HCPCS: 36415; 71260; 80053; 80202; 82140; 82805; 85007; 85025; 85027; 87040; 87075; 87076; 87116; 87186; 88302; 88304; 96374; G0378; A4217; J0330; J0690; J1100; J1580; J1650; J2370; J2405; J2543; J2704; J3010; J3370; J7030; J7040; J7050; J7120; Q9966

== ENCOUNTER 2019-06-15 08:03 | Outpatient (CLI) | payer MEDICAID | END 2019-06-15 08:04 | disposition home or self-care (01) | LOC: ECHO 08:03 | PROVIDERS: ATTEND Internal Medicine Cardiovascular Disease | DX: I08.1 Rheumatic disorders of both mitral and tricuspid valves (principal); I27.20 Pulmonary hypertension, unspecified; I70.0 Atherosclerosis of aorta | CPT/HCPCS: 93306 ==

== ENCOUNTER 2020-07-17 09:00 | Outpatient (CLI) | payer MEDICAID, MEDICARE ==
--- NOTE | 2020-07-17 10:52 | Anesthesia Consultation ---
Anesthesia Consult and Med Hx Date of service: 07/20/20 - Airway Anesthetic Teeth Evaluation: Poor, Dentures ROM Head & Neck: Adequate Mental/Hyoid Distance: Adequate Mallampati Class: Class III Intubation Access Assessment: Probably Good (previous easy intubation with MAC 3) - Pulmonary Exam CTA: Yes - Cardiac Exam Cardiac Exam: No Murmur (irregular rhythm) - Pre-Operative Health Status ASA Pre-Surgery Classification: ASA3 Proposed Anesthetic Plan: General - Pulmonary Hx Respiratory Symptoms: No - Cardiovascular System Hx Hypertension: Yes Hx Coronary Artery Disease: Yes (EF 35-40% on 04/2020 TTE) Hx Percutaneous Transluminal Coronary Angioplasty (PTCA): Yes (11/2019 to LAD; plavix held since 07/10/20) Hx Cardia Arrhythmia: Yes (permanent a-fib; eliquis held since 07/10/20) Hx Pacemaker: No Hx Internal Defibrillator: No - Central Nervous System CVA: No - Endocrine Hx Renal Disease: No Hx Liver Disease: No Hx Insulin Dependent Diabetes: No Hx Non-Insulin Dependent Diabetes: No Hx Thyroid Disease: No - Other Systems Hx Cancer: Yes (hx breast ca) Hx Obesity: Yes (BMI 33) - Additional Comments Anesthesia Medical History Comments: No hx anesthetic complications. Recent c ardiology evaluation on chart.
[2020-07-17 11:51] LABS: Hematocrit 34.6 % (30.3-42.9); Mean Corpuscular HGB Conc 32 % (30-34); Mean Corpuscular Volume 87 fl (79-97); Platelet Count 208 K/mm3 (140-440); Red Blood Count 3.96 M/mm3 (3.65-5.03); Red Cell Distribution Width 15.9 % (13.2-15.2)
[2020-07-17 12:02] LABS: BUN/Creatinine Ratio 16; Blood Urea Nitrogen 13 mg/dL (7-17); Calcium 9.2 mg/dL (8.4-10.2); Hemolysis Index 0
[2020-07-17 16:26] VITALS: BP 143/71
[2020-07-20] MEDS ORDERED: MIDAZOLAM 2 MG/2 ML INJ IV NR (06:00)
[2020-07-20] MEDS ORDERED: GABAPENTIN 300 MG CAP PO NR (06:00)
[2020-07-20] MEDS ORDERED: ACETAMINOPHEN 500 MG TAB PO SCH (06:00)
[2020-07-20] MEDS ORDERED: LACTATED RINGERS 1,000 ML IV SCH (06:00)
== END 2020-07-17 11:00 | disposition home or self-care (01) ==
LOC: LAB 09:00 → EDSTATUS 07-20 13:00
PROVIDERS: ATTEND Plastic Surgery
DX: Z85.3 Personal history of malignant neoplasm of breast (principal)
CPT/HCPCS: 36415; 80048; 85027; U0003